=== PATIENT | female | born 1950 | race Caucasian/White ===

== ENCOUNTER 2018-11-09 11:18 | Inpatient (IN) ==
[2018-11-09] MEDS ORDERED: Ondansetron ODT 4 MG TAB.RAPDIS SL PRN (21:59)
[2018-11-09] MEDS ORDERED: Albuterol 2.5 MG/3 ML NEBULIZER IH PRN (22:01)
[2018-11-09 22:22] LABS: Bilirubin,Urine Negative (Negative); Blood,Urine Trace-lysed (Negative); Clarity,Urine Slightly Cloudy (Clear); Glucose,Urine (UA) Normal (Normal); Ketones,Urine Negative (Negative); Leukocyte Esterase,Urine Negative (Negative); Nitrite,Urine Negative (Negative); Protein,Urine Negative (Neg-Trace); Urobilinogen,Urine Normal (Normal)
[2018-11-09 22:23] LABS: Color,Urine Yellow (Yellow); RBC,Urine 0-3 per hpf (0-3); Squamous Epithelial Cell,Urine Few per lpf (None-Few)
[2018-11-10] MEDS: Acetaminophen 325 MG TABLET PO PRN ×3 (02:20→19:23)
[2018-11-10] MEDS: *HR* Enoxaparin 40 MG/0.4 ML SYRINGE SQ SCH (05:47)
[2018-11-10 05:58] LABS: Basophils # 0.1 K/mcL (0.0-0.2); Basophils % 0.4 %; Eosinophils # 0.1 K/mcL (0.0-0.6); Eosinophils % 0.7 %; Hematocrit 38.3 % (35.3-44.9); Immature Granulocytes % 0.3 % (0-4); Lymphocytes # 2.5 K/mcL (0.6-4.6); Lymphocytes % 21.7 %; Mean Corpuscular HGB Conc 33.7 g/dL (31.6-35.5); Mean Corpuscular Hemoglobin 27.2 pg (28.0-33.3); Mean Corpuscular Volume 80.8 fL (83.0-100.0); Mean Platelet Volume 9.2 fL (9.4-12.4); Monocytes % 8.3 %; Neutrophils # 7.8 K/mcL (1.6-8.9); Platelet Count 292 K/mcL (140-400); Red Blood Count 4.74 M/mcL (3.82-4.97); Red Cell Distribution Width 13.3 % (11.5-14.5); Segmented Neutrophils % 68.6 %; White Blood Count 11.4 K/mcL (4.3-11.1)
[2018-11-10 06:03] LABS: Hemoglobin 12.9 g/dL (11.5-15.4)
[2018-11-10 06:15] LABS: Alanine Aminotransferase 22 Units/L (7-52); Albumin 3.6 g/dL (3.5-5.7); Albumin/Globulin Ratio 1.5 (1.1-2.2); Alkaline Phosphatase 86 Units/L (34-104); Aspartate Amino Transferase 19 Units/L (13-39); BUN/Creatinine Ratio 17 (6-26); Bilirubin,Total 0.4 mg/dL (0.3-1.0); Blood Urea Nitrogen 10 mg/dL (8-23); Calcium 8.7 mg/dL (8.6-10.3); Carbon Dioxide 24 mEq/L (23-29); Chloride 107 mEq/L (98-107); Globulin 2.4 g/dL (2.4-3.5); Glucose 123 mg/dL (70-105); Magnesium 1.7 mg/dL (1.6-2.6); Osmolality,Calculated 284 (280-300); Potassium 3.1 mEq/L (3.5-5.1); Sodium 137 mEq/L (136-145); eGFR For African Americans > 60 (> 60); eGFR For Non-African Americans > 60 (> 60)
[2018-11-10] MEDS: Sennosides 8.6 MG TABLET PO SCH (08:50)
[2018-11-10] MEDS ORDERED: Aspirin Enteric Coated 81 MG Tablet PO SCH (09:00)
[2018-11-10] MEDS ORDERED: cloNIDine HCl 0.1 MG TABLET PO PRN (09:04)
--- NOTE | 2018-11-10 10:35 | Internal Med History&Physical ---
Date of Encounter: 11/10/18 Time of Encounter: 10:35 Assessment and Plan (1) Hypokalemia Current visit: Yes Status: Acute Supplemental potassium. Potassium level was 3.1 today. Will continue to monitor labs. (2) COPD (chronic obstructive pulmonary disease) Current visit: Yes Status: Acute Stable. Monitor. Continue current medication Qualifiers: COPD type: unspecified COPD Qualified Code(s): J44.9 - Chronic obstructive pulmonary disease, unspecified (3) CVA (cerebral vascular accident) Current visit: Yes Status: Acute Patient with left facial droop, left hemiplegia, left visual field cut. Dysphagia. PT, OT and ST to eval and treat. no new neurological deficits. follow up with neuro as scheduled. Qualifiers: CVA mechanism: embolism Precerebral and cerebral artery: middle cerebral artery Laterality of affected vessel: right Qualified Code(s): I63.411 - Cerebral infarction due to embolism of right middle cerebral artery Internal Medicine - H&P: HPI Admitted From: Hospital to Hospital Transfer Plans for Post Hospital Care: Home History of present illness: Ms. Contreras is a 68 year old female admitted to inpatient rehab unit from [facility] status post right MCA stroke. She was admitted on . She had a fall on . Then the family found her the next morning with weakness on left side. Patient has significant left-sided neglect with dysarthria, left facial droop, left-sided visual field cut and dysphagia. had MBS- on honey thick and mechanically altered diet. states she lives at home with granddaughter. denies fever, chills, NVD, SOB or chest pain. states bowels moved this am. current smoker 2 pack per day. PT, OT and ST to eval and treat. Past Med Surg Social Fam HX - Past Medical History Medical history: asthma, COPD, hypertension Additional medical history: Right MCA Psychiatric history: no psych history - Past Surgical History Additional surgical history: Tubal ligation - Social History Smoking Status: Former smoker Smokeless Tobacco Status: No Alcohol use: occasionally Drug use: none - Family History Mother History Unknown: Yes Father History Unknown: Yes Internal Medicine - H&P: Meds Aspirin [Lo-Dose Aspirin EC] 81 mg PO DAILY 11/09/18 [History] Atorvastatin [Lipitor] 80 mg PO HS 11/09/18 [History] Docusate [Colace] 100 mg PO BID 11/09/18 [History] Lisinopril [Zestril] 10 mg PO DAILY 11/09/18 [History] Sennosides [Senokot] 8.6 mg PO DAILY 11/09/18 [History] Allergy/AdvReac Type Severity Reaction Status Date / Time No Known Allergies Allergy Verified 11/09/18 23:56 All Systems PM: A 10-system review of systems was performed and is negative for pertinent findings except as documented above in the HPI. - Constitutional Constitutional: no chills, no fever(s), no night sweats - EENT Eyes: as per HPI, no change in vision, no discharge, no pain, no photophobia Ears: no ear discharge, no ear pain, no tinnitus Nose, mouth and throat: no dysphagia, no nasal discharge, no neck pain, no sore throat - Cardiovascular Cardiovascular ROS IM: no chest pain, no diaphoresis, no dyspnea, no lightheadedness, no palpitations, no syncope - Respiratory Respiratory: no cough, no dyspnea, no wheezing, no excessive phlegm production - Gastrointestinal Gastrointestinal: no abdominal pain, no diarrhea, no hematemesis, no hematochezia, no melena, no nausea, no vomiting - Genitourinary Genitourinary: no change in urinary stream, no dysuria, no flank pain, no hematuria - Musculoskeletal Musculoskeletal ROS IM: no numbness, no tingling - Integumentary Integumentary IM: no rash, no unusual bruising - Neurological Neurological ROS: as per HPI, no confusion, no convulsions, no focal weakness, no numbness, no tingling, no tremor(s) - Hematologic/Lymphatic Hematologic/Lymphatic: no easy bruising - Constitutional Vitals: Temp Pulse Resp BP Pulse Ox 98.3 F 71 18 164/81 93 11/10/18 07:00 11/10/18 07:00 11/10/18 07:00 11/10/18 07:00 11/10/18 07:00 General appearance: Present: cooperative, A&O X 3, pleasant, no acute distress, answers questions appropriately Exam: Left facial droop, left visual field cut - Head Head exam: Present: atraumatic, normocephalic - Eye Eye exam: Present: PERRL, conjuntiva pink, sclera anicteric Pupils: Present: PERRL - Neck Neck exam general surgery: Present: supple, trachea midline. Absent: lymphadenopathy - Respiratory Respiratory exam: Present: CTAB. Absent: accessory muscle use, rales, rhonchi, wheezes - Cardiovascular Cardiovascular exam: Present: RRR, +S1, +S2. Absent: diastolic murmur, gallop, rubs, systolic murmur - GI/Abdominal GI/Abdominal exam: Present: normal bowel sounds, soft, no peritoneal signs. Absent: distended, tenderness - Extremities Exam Extremities exam: Present: warm, radial pulses palpable and symmetrical. Absent: calf tenderness, cyanotic, pedal edema Additional comments: Left-sided hemiplegia - Neurological Exam Neurological exam: Present: alert, oriented X3, facial droop, speech deficit. Absent: pronater drift Additional comments: Left-sided hemiplegia - Skin Skin exam: Present: dry, intact Internal Med - H&P Results - Labs CBC & Chem 7: 11/10/18 05:50 11/10/18 05:50 Labs: Short CBC 11/10/18 Range/Units 05:50 WBC 11.4 H (4.3-11.1) K/mcL Hgb 12.9 D (11.5-15.4) g/dL Hct 38.3 (35.3-44.9) % Plt Count 292 (140-400) K/mcL Neutrophils # 7.8 (1.6-8.9) K/mcL BMP 11/10/18 05:50 Sodium 137 Potassium 3.1 L Chloride 107 Carbon Dioxide 24 BUN 10 Creatinine 0.58 L Glucose 123 H Calcium 8.7 Liver Function 11/10/18 Range/Units 05:50 Total Bilirubin 0.4 (0.3-1.0) mg/dL AST 19 (13-39) Units/L ALT 22 (7-52) Units/L Alkaline Phosphatase 86 (34-104) Units/L Albumin 3.6 (3.5-5.7) g/dL Urine 11/09/18 Range/Units 22:00 Urine Color Yellow (Yellow) Urine Clarity Slightly Cloudy A (Clear) Urine pH 6.0 (5.0-8.0) pH Units Ur Specific [place] 1.010 (1.010-1.025) Urine Protein Negative (Neg-Trace) mg/dL Urine Glucose (UA) Normal (Normal) mg/dL - Stroke Is the patient on any antithrombotics?: Yes Are there any contradictions to antithrombotics?: No
[2018-11-10] MEDS: Potassium Chloride Elixir 20 MEQ/15 ML UDC PO SCH ×2 (13:44→16:54)
[2018-11-10] MEDS: Docusate Oral Soln 100 MG/10 ML UDC PO SCH (20:30)
[2018-11-11] MEDS: Acetaminophen 325 MG TABLET PO PRN ×2 (00:24→19:48)
[2018-11-11] MEDS: *HR* Enoxaparin 40 MG/0.4 ML SYRINGE SQ SCH (05:01)
[2018-11-11] MEDS: Docusate Oral Soln 100 MG/10 ML UDC PO SCH ×2 (09:16→19:48)
[2018-11-11] MEDS: Potassium Chloride Elixir 20 MEQ/15 ML UDC PO SCH ×3 (09:16→16:36)
[2018-11-11] MEDS: Aspirin 81 MG TAB.CHEW PO SCH (09:16)
[2018-11-11] MEDS: Sennosides 8.6 MG TABLET PO SCH (09:16)
--- NOTE | 2018-11-11 11:56 | Internal Med Progress Note ---
Date of Encounter: 11/11/18 Time of Encounter: 11:54 - Assessment and plan (1) CVA (cerebral vascular accident) Current Visit: Yes Status: Acute Assessment and plan: No acute issues. Patient continues with left hemiplegia effect. Continues with left facial droop and slight expressive aphasia. Patient complaining of muscle spasms a left leg currently is that the pain is tolerable. Left arm remains contracted. Patient participated in physical therapy progressing well. We will continue with current plan of care. Qualifiers: CVA mechanism: embolism Precerebral and cerebral artery: middle cerebral artery Laterality of affected vessel: right Qualified Code(s): I63.411 - Cerebral infarction due to embolism of right middle cerebral artery (2) COPD (chronic obstructive pulmonary disease) Current Visit: Yes Status: Acute Assessment and plan: No acute issues. Lungs are clear throughout. We will continue with current bronchodilators and medications per plans. Qualifiers: COPD type: unspecified COPD Qualified Code(s): J44.9 - Chronic obstructive pulmonary disease, unspecified - Time Spent With Patient less than 15 minutes - Subjective Interval history: Patient appears relaxed but complaints of recent muscle spasms to her left leg. Patient states that her muscle spasms increase during mobilization. Eyes any other issues. - Constitutional Vitals: Temp Pulse Resp BP Pulse Ox 97.7 F 78 15 160/82 93 11/11/18 07:00 11/11/18 07:00 11/11/18 07:00 11/11/18 07:00 11/11/18 07:00 General appearance: Present: cooperative, A&O X 3, pleasant, no acute distress, answers questions appropriately - Head Head exam: Present: atraumatic, normocephalic - Eye Eye exam: Present: PERRL, conjuntiva pink, sclera anicteric Pupils: Present: PERRL Additional comments: Patient noted to have visual cut to left field. - Neck Neck exam general surgery: Present: supple, trachea midline. Absent: lymphadenopathy - Respiratory Respiratory exam: Present: CTAB. Absent: accessory muscle use, rales, rhonchi, wheezes - Cardiovascular Cardiovascular exam: Present: RRR, +S1, +S2. Absent: diastolic murmur, gallop, rubs, systolic murmur - GI/Abdominal GI/Abdominal exam: Present: normal bowel sounds, soft, no peritoneal signs. Absent: distended, tenderness - Extremities Exam Extremities exam: Present: warm, radial pulses palpable and symmetrical. Absent: calf tenderness, cyanotic, pedal edema - Neurological Exam Neurological exam: Present: CN II-XII intact, oriented X3, no focal deficits. Absent: pronater drift, facial droop, speech deficit Additional comments: Patient with left hemiplegia, with left arm showing fracture. Left leg with muscle spasms. Right extremities at 5/5. Patient shows left facial droop and left visual cut. - Skin Skin exam: Present: dry, intact Internal Medicine: Result - Labs CBC & Chem 7: 11/10/18 05:50 11/10/18 05:50 - Stroke Is the patient on any antithrombotics?: Yes Are there any contradictions to antithrombotics?: No Consult Discharge Plan - Plan Referrals: Caesar Marquez MD [Primary Care Provider] -
[2018-11-11 14:25] LABS: BUN/Creatinine Ratio 27 (6-26); Blood Urea Nitrogen 17 mg/dL (8-23); Calcium 9.4 mg/dL (8.6-10.3); Carbon Dioxide 25 mEq/L (23-29); Chloride 105 mEq/L (98-107); Glucose 115 mg/dL (70-105); Osmolality,Calculated 284 (280-300); Potassium 4.2 mEq/L (3.5-5.1); Sodium 136 mEq/L (136-145); eGFR For African Americans > 60 (> 60); eGFR For Non-African Americans > 60 (> 60)
[2018-11-11] MEDS: tiZANidine 4 MG TABLET PO PRN (19:48)
[2018-11-12] MEDS: tiZANidine 4 MG TABLET PO PRN (02:45)
[2018-11-12] MEDS: *HR* Enoxaparin 40 MG/0.4 ML SYRINGE SQ SCH (06:28)
[2018-11-12] MEDS: Sennosides 8.6 MG TABLET PO SCH (08:46)
[2018-11-12] MEDS: Docusate Oral Soln 100 MG/10 ML UDC PO SCH ×2 (08:46→20:01)
[2018-11-12] MEDS: Potassium Chloride Elixir 20 MEQ/15 ML UDC PO SCH ×3 (08:46→17:34)
[2018-11-12] MEDS: Aspirin 81 MG TAB.CHEW PO SCH (08:46)
[2018-11-12 09:28] LABS: Basophils # 0.1 K/mcL (0.0-0.2); Basophils % 0.4 %; Eosinophils # 0.1 K/mcL (0.0-0.6); Eosinophils % 0.6 %; Hemoglobin 13.8 g/dL (11.5-15.4); Immature Granulocytes % 0.4 % (0-4); Lymphocytes # 2.7 K/mcL (0.6-4.6); Lymphocytes % 17.2 %; Mean Corpuscular HGB Conc 32.1 g/dL (31.6-35.5); Mean Corpuscular Hemoglobin 26.7 pg (28.0-33.3); Mean Corpuscular Volume 83.3 fL (83.0-100.0); Mean Platelet Volume 9.4 fL (9.4-12.4); Monocytes % 6.7 %; Neutrophils # 11.6 K/mcL (1.6-8.9); Platelet Count 342 K/mcL (140-400); Red Blood Count 5.16 M/mcL (3.82-4.97); Red Cell Distribution Width 13.6 % (11.5-14.5); Segmented Neutrophils % 74.7 %; White Blood Count 15.5 K/mcL (4.3-11.1)
--- NOTE | 2018-11-12 09:46 | Internal Med Progress Note ---
Date of Encounter: 11/12/18 Time of Encounter: 09:44 - Assessment and plan (1) CVA (cerebral vascular accident) Current Visit: Yes Status: Acute Assessment and plan: No acute issues. Patient continues with left hemiplegia effect. Continues with left facial droop and slight expressive aphasia. Patient continues with complaints of muscle spasms a left leg currently is that the pain is tolerable. Patient currently on when necessary Zanaflex. We will change Zanaflex to routine. Left arm remains contracted. Patient participated in physical therapy progressing well. We will continue with current plan of care. Qualifiers: CVA mechanism: embolism Precerebral and cerebral artery: middle cerebral artery Laterality of affected vessel: right Qualified Code(s): I63.411 - Cerebral infarction due to embolism of right middle cerebral artery (2) COPD (chronic obstructive pulmonary disease) Current Visit: Yes Status: Acute Assessment and plan: No acute issues. Lungs are clear throughout. We will continue with current bronchodilators and medications per plans. Qualifiers: COPD type: unspecified COPD Qualified Code(s): J44.9 - Chronic obstructive pulmonary disease, unspecified - Time Spent With Patient less than 15 minutes - Subjective Interval history: Patient appears relaxed but continues with complaints of recent muscle spasms to her left leg. Patient started on when necessary Zanaflex yesterday, but states she is not sure there is been any effect from that. Patient states that her muscle spasms increase during mobilization. Denies any other issues. - Constitutional Vitals: Temp Pulse Resp BP Pulse Ox 98.3 F 62 14 165/80 94 11/12/18 06:43 11/12/18 06:43 11/12/18 06:43 11/12/18 06:43 11/12/18 06:43 General appearance: Present: cooperative, A&O X 3, pleasant, no acute distress, answers questions appropriately - Head Head exam: Present: atraumatic, normocephalic - Eye Eye exam: Present: PERRL, conjuntiva pink, sclera anicteric Pupils: Present: PERRL - Neck Neck exam general surgery: Present: supple, trachea midline. Absent: lymphad enopathy - Respiratory Respiratory exam: Present: decreased breath sounds, CTAB. Absent: accessory muscle use, rales, rhonchi, wheezes - Cardiovascular Cardiovascular exam: Present: RRR, +S1, +S2. Absent: diastolic murmur, gallop, rubs, systolic murmur - GI/Abdominal GI/Abdominal exam: Present: normal bowel sounds, soft, no peritoneal signs. Absent: distended, tenderness - Extremities Exam Extremities exam: Present: warm, radial pulses palpable and symmetrical. Absent: calf tenderness, cyanotic, pedal edema - Neurological Exam Neurological exam: Present: CN II-XII intact, oriented X3, facial droop. Absent: pronater drift, speech deficit Additional comments: Patient continues with left hemiparesis. Left arm noted to be contracted and difficult to extend. Left lower extremity is 3/5 muscle strength. Right extremities 5/5. Continues with left facial droop. - Skin Skin exam: Present: dry, intact Internal Medicine: Result - Labs CBC & Chem 7: 11/12/18 08:55 11/11/18 12:07 Labs: Short CBC 11/12/18 Range/Units 08:55 WBC 15.5 H (4.3-11.1) K/mcL Hgb 13.8 (11.5-15.4) g/dL Hct 43.0 (35.3-44.9) % Plt Count 342 (140-400) K/mcL Neutrophils # 11.6 H (1.6-8.9) K/mcL BMP 11/11/18 12:07 Sodium 136 Potassium 4.2 Chloride 105 Carbon Dioxide 25 BUN 17 Creatinine 0.62 Glucose 115 H Calcium 9.4 - Stroke Is the patient on any antithrombotics?: Yes Are there any contradictions to antithrombotics?: No Consult Discharge Plan - Plan Referrals: Caesar Marquez MD [Primary Care Provider] -
[2018-11-12] MEDS: tiZANidine 4 MG TABLET PO SCH ×3 (13:23→20:00)
[2018-11-12] MEDS: Acetaminophen 325 MG TABLET PO PRN (20:00)
[2018-11-13] MEDS: *HR* Enoxaparin 40 MG/0.4 ML SYRINGE SQ SCH (06:28)
[2018-11-13] MEDS: tiZANidine 4 MG TABLET PO SCH ×4 (08:21→20:47)
[2018-11-13] MEDS: Sennosides 8.6 MG TABLET PO SCH (08:21)
[2018-11-13] MEDS: Aspirin 81 MG TAB.CHEW PO SCH (08:21)
[2018-11-13] MEDS: Docusate Oral Soln 100 MG/10 ML UDC PO SCH ×3 (08:21→20:57)
--- NOTE | 2018-11-13 10:21 | Internal Med Progress Note ---
Date of Encounter: 11/13/18 Time of Encounter: : - Assessment and plan (1) Bronchitis Current Visit: Yes Status: Acute Assessment and plan: pt WBC high , afebrile so far has some cough no apparent Respiratory distress . SHe has hx of COPD , start Levofloxcin and followup sputum culture and sensitivity . Chest Xray for pneumonia (2) Acute ischemic stroke Current Visit: No Status: Acute Assessment and plan: R Hemisphere stroke left side effected getting rehab stable so far (3) HTN (hypertension) Current Visit: No Status: Chronic Assessment and plan: on meds stable Qualifiers: Hypertension type: essential hypertension Qualified Code(s): I10 - Essential (primary) hypertension - Subjective Interval history: Cross coverage , having some cough afebrile so far , in rehab getting her PT ignores her left side completely no acute respiratory distress noted , asnwers questions appropriately - Constitutional Vitals: Temp Pulse Resp BP Pulse Ox 97.5 F L 75 17 144/74 93 11/12/18 18:53 11/12/18 18:53 11/12/18 18:53 11/12/18 18:53 11/12/18 18:53 General appearance: Present: cooperative, A&O X 3, pleasant, no acute distress, answers questions appropriately - Head Head exam: Present: atraumatic - Eye Eye exam: Present: EOMI, PERRL. Absent: scleral icterus Pupils: Present: PERRL - Neck Neck exam general surgery: Present: supple. Absent: tenderness, nuchal rigidity - Respiratory Respiratory exam: Present: rales. Absent: decreased breath sounds, rhonchi, stridor, wheezes Additional comments: mild crackles noted on the bases has some cough - Cardiovascular Cardiovascular exam: Present: RRR, +S1, +S2. Absent: JVD - GI/Abdominal GI/Abdominal exam: Present: normal bowel sounds, soft. Absent: distended, firm, rebound, rigid - Extremities Exam Extremities exam: Absent: pedal edema, tenderness, warm - Neurological Exam Neurological exam: Present: oriented X3, facial droop, speech deficit Additional comments: weakness on the left side , ignoring left side , deviation face towards left no difficulty in swallowing noted weakened in left upper and lower limb tongue deviation towards left side Internal Medicine: Result - Labs CBC & Chem 7: 11/12/18 08:55 11/11/18 12:07 - Stroke Is the patient on any antithrombotics?: Yes Contraindication Antithromb by Day Two: Drug Allergy to All Antithromobic Med ications Consult Discharge Plan - Plan Referrals: Caesar Marquez MD [Primary Care Provider] -
[2018-11-13] MEDS: levoFLOXacin 500 MG TABLET PO SCH (12:40)
[2018-11-13] MEDS: Acetaminophen 325 MG TABLET PO PRN (20:46)
[2018-11-13] MEDS: Melatonin 3 MG TABLET PO PRN (20:46)
[2018-11-14] MEDS: *HR* Enoxaparin 40 MG/0.4 ML SYRINGE SQ SCH (05:31)
[2018-11-14] MEDS: Docusate Oral Soln 100 MG/10 ML UDC PO SCH ×2 (09:56→20:55)
[2018-11-14] MEDS: levoFLOXacin 500 MG TABLET PO SCH (10:17)
[2018-11-14] MEDS: Aspirin 81 MG TAB.CHEW PO SCH (10:17)
[2018-11-14] MEDS: Sennosides 8.6 MG TABLET PO SCH (10:17)
[2018-11-14] MEDS: tiZANidine 4 MG TABLET PO SCH ×4 (10:18→20:54)
--- NOTE | 2018-11-14 10:24 | Internal Med Progress Note ---
Date of Encounter: 11/14/18 Time of Encounter: 10:22 - Assessment and plan (1) Bronchitis Current Visit: Yes Status: Acute Assessment and plan: CXR negative conitnue antibiotics orally for days seems to be better (2) Acute ischemic stroke Current Visit: No Status: Acute Assessment and plan: R Hemisphere stroke left side effected getting rehab stable so far doing better needs support for feeding (3) HTN (hypertension) Current Visit: No Status: Chronic Assessment and plan: slightly high will follow and adjust if needed - Subjective Interval history: Cross coverage , seems to be doing much better today cough has abated and she feels that she has n breathing issues. Her speech is still garbled. No other issues at the present time - Constitutional Vitals: Temp Pulse Resp BP Pulse Ox 98.2 F 75 17 152/82 93 11/14/18 07:40 11/14/18 07:40 11/14/18 07:40 11/14/18 07:40 11/14/18 07:40 General appearance: Present: cooperative, A&O X 3, pleasant, no acute distress, answers questions appropriately - Head Head exam: Present: atraumatic - Eye Eye exam: Present: EOMI, PERRL. Absent: scleral icterus Pupils: Present: PERRL - Neck Neck exam general surgery: Present: full ROM, supple. Absent: tenderness, nuchal rigidity - Respiratory Respiratory exam: Present: decreased breath sounds, CTAB. Absent: chest wall te nderness, respiratory distress, rhonchi, stridor, wheezes, tachypnea Additional comments: no basal crackles today lung sounds much cleared today - Cardiovascular Cardiovascular exam: Present: RRR, +S1, +S2. Absent: irregular rhythm, JVD - GI/Abdominal GI/Abdominal exam: Present: normal bowel sounds, soft. Absent: distended, guarding, rigid - Extremities Exam Extremities exam: Absent: pedal edema, tenderness - Neurological Exam Neurological exam: Present: alert, oriented X3, facial droop, speech deficit Additional comments: left neglect , deviation of face and 7 th nerve involvement paralysis on the left side both upper and lower limb Internal Medicine: Result - Labs CBC & Chem 7: 11/12/18 08:55 11/11/18 12:07 - Impressions Impressions Chest X-Ray 11/13/18 10:28 IMPRESSION: No evidence of acute cardiopulmonary disease. D/ / Tian Manzanares MD / Tian Manzanares MD Interpreting Provider: Tian Manzanares MD - Stroke Is the patient on any antithrombotics?: Yes Are there any contradictions to antithrombotics?: No Contraindication Antithromb by Day Two: Drug Allergy to All Antithromobic Medications Symptom Onset Unknown: No (none) Has Patient Been Evaluated by Rehab for Stroke: Yes Consult Discharge Plan - Plan Referrals: Caesar Marquez MD [Primary Care Provider] -
[2018-11-14] MEDS: Acetaminophen 325 MG TABLET PO PRN (23:05)
[2018-11-15 06:15] LABS: Basophils # 0.1 K/mcL (0.0-0.2); Basophils % 0.5 %; Eosinophils # 0.1 K/mcL (0.0-0.6); Eosinophils % 0.7 %; Hematocrit 41.9 % (35.3-44.9); Hemoglobin 13.5 g/dL (11.5-15.4); Immature Granulocytes % 0.5 % (0-4); Lymphocytes % 25.9 %; Mean Corpuscular HGB Conc 32.2 g/dL (31.6-35.5); Mean Corpuscular Hemoglobin 26.7 pg (28.0-33.3); Mean Platelet Volume 9.4 fL (9.4-12.4); Neutrophils # 7.3 K/mcL (1.6-8.9); Platelet Count 363 K/mcL (140-400); Red Blood Count 5.05 M/mcL (3.82-4.97); Red Cell Distribution Width 13.4 % (11.5-14.5); Segmented Neutrophils % 63.4 %; White Blood Count 11.5 K/mcL (4.3-11.1)
[2018-11-15] MEDS: *HR* Enoxaparin 40 MG/0.4 ML SYRINGE SQ SCH (06:19)
[2018-11-15 06:28] LABS: Alanine Aminotransferase 35 Units/L (7-52); Albumin 3.7 g/dL (3.5-5.7); Albumin/Globulin Ratio 1.3 (1.1-2.2); Alkaline Phosphatase 102 Units/L (34-104); Aspartate Amino Transferase 16 Units/L (13-39); BUN/Creatinine Ratio 29 (6-26); Bilirubin,Total 0.3 mg/dL (0.3-1.0); Blood Urea Nitrogen 22 mg/dL (8-23); Calcium 9.5 mg/dL (8.6-10.3); Carbon Dioxide 27 mEq/L (23-29); Chloride 103 mEq/L (98-107); Globulin 2.9 g/dL (2.4-3.5); Glucose 110 mg/dL (70-105); Magnesium 1.9 mg/dL (1.6-2.6); Osmolality,Calculated 286 (280-300); Sodium 136 mEq/L (136-145); Total Protein 6.6 g/dL (6.4-8.9); eGFR For African Americans > 60 (> 60); eGFR For Non-African Americans > 60 (> 60)
[2018-11-15] MEDS: tiZANidine 4 MG TABLET PO SCH ×4 (08:36→20:31)
[2018-11-15] MEDS: Sennosides 8.6 MG TABLET PO SCH (08:37)
[2018-11-15] MEDS: Aspirin 81 MG TAB.CHEW PO SCH (08:37)
[2018-11-15] MEDS: levoFLOXacin 500 MG TABLET PO SCH (08:37)
[2018-11-15] MEDS: Docusate Oral Soln 100 MG/10 ML UDC PO SCH ×2 (08:38→20:38)
--- NOTE | 2018-11-15 11:55 | Internal Med Progress Note ---
Date of Encounter: 11/15/18 Time of Encounter: 11:53 - Assessment and plan (1) CVA (cerebral vascular accident) Current Visit: Yes Status: Acute Assessment and plan: Continue PT, OT and ST. Will follow progress. No new neurological deficits at this time. Follow up with neuro as scheduled. Qualifiers: CVA mechanism: embolism Precerebral and cerebral artery: middle cerebral artery Laterality of affected vessel: right Qualified Code(s): I63.411 - Cerebral infarction due to embolism of right middle cerebral artery (2) Bronchitis Current Visit: Yes Status: Acute Assessment and plan: Continue Levaquin. Monitor. Continues to have bronchospastic cough. White blood cell count 11.5 today. Afebrile. (3) HTN (hypertension) Current Visit: Yes Status: Chronic Assessment and plan: Controlled with current medication. Monitor blood pressure. Qualifiers: Hypertension type: essential hypertension Qualified Code(s): I10 - Essential (primary) hypertension - Time Spent With Patient less than 15 minutes - Subjective Interval history: Patient participating well with therapy. Patient is dysarthria with left facial droop left visual cut and left hemiparesis. Started on Levaquin for bronchitis. Continues to have bronchus spastic cough. White blood cell count 11.5 today. Patient afebrile. - Constitutional Vitals: Temp Pulse Resp BP Pulse Ox 97.8 F 71 15 138/79 95 11/15/18 07:56 11/15/18 07:56 11/15/18 07:56 11/15/18 07:56 11/15/18 07:56 General appearance: Present: cooperative, A&O X 3, pleasant, no acute distress, answers questions appropriately Exam: Left facial droop and left visual cut - Head Head exam: Present: atraumatic, normocephalic - Eye Eye exam: Present: PERRL, conjuntiva pink, sclera anicteric Pupils: Present: PERRL - Neck Neck exam general surgery: Present: supple, trachea midline. Absent: lymphadenopathy - Respiratory Respiratory exam: Present: CTAB. Absent: accessory muscle use, rales, rhonchi, wheezes - Cardiovascular Cardiovascular exam: Present: RRR, +S1, +S2. Absent: diastolic murmur, gallop, rubs, systolic murmur - GI/Abdominal GI/Abdominal exam: Present: normal bowel sounds, soft, no peritoneal signs. Absent: distended, tenderness - Extremities Exam Extremities exam: Present: warm, radial pulses palpable and symmetrical. Absent: calf tenderness, cyanotic, pedal edema Additional comments: Left-sided hemiparesis - Neurological Exam Neurological exam: Present: CN II-XII intact, oriented X3, no focal deficits. Absent: pronater drift, facial droop, speech deficit - Skin Skin exam: Present: dry, intact Internal Medicine: Result - Labs CBC & Chem 7: 11/15/18 05:30 11/15/18 05:30 Labs: Short CBC 11/15/18 Range/Units 05:30 WBC 11.5 H (4.3-11.1) K/mcL Hgb 13.5 (11.5-15.4) g/dL Hct 41.9 (35.3-44.9) % Plt Count 363 (140-400) K/mcL Neutrophils # 7.3 (1.6-8.9) K/mcL BMP 11/15/18 05:30 Sodium 136 Potassium 4.0 Chloride 103 Carbon Dioxide 27 BUN 22 Creatinine 0.77 Glucose 110 H Calcium 9.5 Liver Function 11/15/18 Range/Units 05:30 Total Bilirubin 0.3 (0.3-1.0) mg/dL AST 16 (13-39) Units/L ALT 35 (7-52) Units/L Alkaline Phosphatase 102 (34-104) Units/L Albumin 3.7 (3.5-5.7) g/dL - Stroke Is the patient on any antithrombotics?: Yes Are there any contradictions to antithrombotics?: No Contraindication Antithromb by Day Two: Drug Allergy to All Antithromobic Medications Consult Discharge Plan - Plan Referrals: Caesar Marquez MD [Primary Care Provider] -
[2018-11-16] MEDS: *HR* Enoxaparin 40 MG/0.4 ML SYRINGE SQ SCH (06:22)
[2018-11-16 07:10] LABS: Alanine Aminotransferase 27 Units/L (7-52); Albumin 3.6 g/dL (3.5-5.7); Albumin/Globulin Ratio 1.3 (1.1-2.2); Alkaline Phosphatase 94 Units/L (34-104); Aspartate Amino Transferase 16 Units/L (13-39); BUN/Creatinine Ratio 34 (6-26); Bilirubin,Total 0.3 mg/dL (0.3-1.0); Blood Urea Nitrogen 24 mg/dL (8-23); Calcium 9.3 mg/dL (8.6-10.3); Carbon Dioxide 27 mEq/L (23-29); Chloride 102 mEq/L (98-107); Globulin 2.8 g/dL (2.4-3.5); Glucose 109 mg/dL (70-105); Osmolality,Calculated 283 (280-300); Potassium 4.2 mEq/L (3.5-5.1); Sodium 134 mEq/L (136-145); Total Protein 6.4 g/dL (6.4-8.9); eGFR For African Americans > 60 (> 60); eGFR For Non-African Americans > 60 (> 60)
[2018-11-16] MEDS: Docusate Oral Soln 100 MG/10 ML UDC PO SCH ×2 (09:21→19:41)
[2018-11-16] MEDS: Sennosides 8.6 MG TABLET PO SCH (09:22)
[2018-11-16] MEDS: levoFLOXacin 500 MG TABLET PO SCH (09:22)
[2018-11-16] MEDS: Aspirin 81 MG TAB.CHEW PO SCH (09:22)
[2018-11-16] MEDS: tiZANidine 4 MG TABLET PO SCH ×4 (09:22→19:41)
--- NOTE | 2018-11-16 13:50 | Internal Med Progress Note ---
Date of Encounter: 11/16/18 Time of Encounter: 13:48 - Assessment and plan (1) CVA (cerebral vascular accident) Current Visit: Yes Status: Acute Assessment and plan: Continue PT, OT and ST. Will follow progress. No new neurological deficits at this time. Follow up with neuro as scheduled. Qualifiers: CVA mechanism: embolism Precerebral and cerebral artery: middle cerebral artery Laterality of affected vessel: right Qualified Code(s): I63.411 - Cerebral infarction due to embolism of right middle cerebral artery (2) Bronchitis Current Visit: Yes Status: Acute Assessment and plan: Continue Levaquin. Monitor. Continues to have bronchospastic cough. Afebrile. (3) HTN (hypertension) Current Visit: Yes Status: Chronic Assessment and plan: Controlled with current medication. Monitor blood pressure. Qualifiers: Hypertension type: essential hypertension Qualified Code(s): I10 - Essential (primary) hypertension - Time Spent With Patient less than 15 minutes - Subjective Interval history: Patient participating well with therapy. Patient is dysarthria with left facial droop left visual cut and left hemiparesis. Started on Levaquin for bronchitis. Patient afebrile. - Constitutional Vitals: Temp Pulse Resp BP Pulse Ox 98.0 F 87 16 125/77 94 11/15/18 19:00 11/15/18 19:00 11/15/18 19:00 11/15/18 19:00 11/15/18 19:00 General appearance: Present: cooperative, A&O X 3, pleasant, no acute distress, answers questions appropriately Exam: Left facial droop, slurred speech and left visual cut - Head Head exam: Present: atraumatic, normocephalic - Eye Eye exam: Present: PERRL, conjuntiva pink, sclera anicteric Pupils: Present: PERRL - Neck Neck exam general surgery: Present: supple, trachea midline. Absent: lymphadenopathy - Respiratory Respiratory exam: Present: CTAB. Absent: accessory muscle use, rales, rhonchi, wheezes - Cardiovascular Cardiovascular exam: Present: RRR, +S1, +S2. Absent: diastolic murmur, gallop, rubs, systolic murmur - GI/Abdominal GI/Abdominal exam: Present: normal bowel sounds, soft, no peritoneal signs. Absent: distended, tenderness - Extremities Exam Extremities exam: Present: warm, radial pulses palpable and symmetrical. Abse nt: calf tenderness, cyanotic, pedal edema Additional comments: Left hemiparesis - Neurological Exam Neurological exam: Present: CN II-XII intact, oriented X3, no focal deficits. Absent: pronater drift, facial droop, speech deficit - Skin Skin exam: Present: dry, intact Internal Medicine: Result - Labs CBC & Chem 7: 11/15/18 05:30 11/16/18 05:55 Labs: BMP 11/16/18 05:55 Sodium 134 L Potassium 4.2 Chloride 102 Carbon Dioxide 27 BUN 24 H Creatinine 0.70 Glucose 109 H Calcium 9.3 Liver Function 11/16/18 Range/Units 05:55 Total Bilirubin 0.3 (0.3-1.0) mg/dL AST 16 (13-39) Units/L ALT 27 (7-52) Units/L Alkaline Phosphatase 94 (34-104) Units/L Albumin 3.6 (3.5-5.7) g/dL - Stroke Is the patient on any antithrombotics?: Yes Are there any contradictions to antithrombotics?: No Contraindication Antithromb by Day Two: Drug Allergy to All Antithromobic Medications Consult Discharge Plan - Plan Referrals: Caesar Marquez MD [Primary Care Provider] -
[2018-11-16] MEDS: Melatonin 3 MG TABLET PO PRN (23:53)
[2018-11-16] MEDS: Acetaminophen 325 MG TABLET PO PRN (23:53)
[2018-11-17] MEDS: *HR* Enoxaparin 40 MG/0.4 ML SYRINGE SQ SCH (05:55)
[2018-11-17 06:58] LABS: Alanine Aminotransferase 22 Units/L (7-52); Albumin 3.5 g/dL (3.5-5.7); Albumin/Globulin Ratio 1.3 (1.1-2.2); Alkaline Phosphatase 88 Units/L (34-104); Aspartate Amino Transferase 14 Units/L (13-39); BUN/Creatinine Ratio 42 (6-26); Bilirubin,Total 0.3 mg/dL (0.3-1.0); Blood Urea Nitrogen 28 mg/dL (8-23); Calcium 9.3 mg/dL (8.6-10.3); Carbon Dioxide 26 mEq/L (23-29); Chloride 101 mEq/L (98-107); Globulin 2.7 g/dL (2.4-3.5); Glucose 111 mg/dL (70-105); Osmolality,Calculated 286 (280-300); Potassium 3.9 mEq/L (3.5-5.1); Sodium 135 mEq/L (136-145); Total Protein 6.2 g/dL (6.4-8.9); eGFR For African Americans > 60 (> 60); eGFR For Non-African Americans > 60 (> 60)
[2018-11-17] MEDS: levoFLOXacin 500 MG TABLET PO SCH (08:55)
[2018-11-17] MEDS: Aspirin 81 MG TAB.CHEW PO SCH (08:55)
[2018-11-17] MEDS: Sennosides 8.6 MG TABLET PO SCH (08:55)
[2018-11-17] MEDS: tiZANidine 4 MG TABLET PO SCH ×4 (08:55→19:19)
[2018-11-17] MEDS: Docusate Oral Soln 100 MG/10 ML UDC PO SCH ×3 (08:55→19:19)
--- NOTE | 2018-11-17 11:54 | Internal Med Progress Note ---
Date of Encounter: 11/17/18 Time of Encounter: 11:52 - Assessment and plan (1) CVA (cerebral vascular accident) Current Visit: Yes Status: Acute Assessment and plan: Continue PT, OT and ST. Will follow progress. No new neurological deficits at this time. Follow up with neuro as scheduled. Qualifiers: CVA mechanism: embolism Precerebral and cerebral artery: middle cerebral artery Laterality of affected vessel: right Qualified Code(s): I63.411 - Cerebral infarction due to embolism of right middle cerebral artery (2) Bronchitis Current Visit: Yes Status: Acute Assessment and plan: Continue Levaquin. Monitor. Improving. No cough at time of exam today. Afebrile. (3) HTN (hypertension) Current Visit: Yes Status: Chronic Assessment and plan: Controlled with current medication. Monitor blood pressure. Qualifiers: Hypertension type: essential hypertension Qualified Code(s): I10 - Essential (primary) hypertension (4) Insomnia Current Visit: Yes Status: Acute Assessment and plan: Currently taking melatonin 3 mg at this time. States she is not sleeping well. Will increased to 6 mg at bedtime. Qualifiers: Insomnia type: unspecified Qualified Code(s): G47.00 - Insomnia, unspecified - Time Spent With Patient 25 - 35 minutes - Subjective Interval history: Patient participating well with therapy. Patient is dysarthria with left facial droop left visual cut and left hemiparesis. denies any pain, fever, chills, NVD. denies SOB or chest pain. pocketing food in left, requires cueing to clear. states not sleeping well. will increase melatonin to 6mg at bedtime. - Constitutional Vitals: Temp Pulse Resp BP Pulse Ox 98.8 F 79 16 136/71 94 11/16/18 19:38 11/16/18 19:38 11/16/18 19:38 11/16/18 19:38 11/16/18 19:38 General appearance: Present: cooperative, A&O X 3, pleasant, no acute distress, answers questions appropriately Exam: Left facial droop, slurred speech, left visual field cut - Head Head exam: Present: atraumatic, normocephalic - Eye Eye exam: Present: PERRL, conjuntiva pink, sclera anicteric Pupils: Present: PERRL - Neck Neck exam general surgery: Present: supple, trachea midline. Absent: lymphadenopathy - Respiratory Respiratory exam: Present: CTAB. Absent: accessory muscle use, rales, rhonchi, wheezes - Cardiovascular Cardiovascular exam: Present: RRR, +S1, +S2. Absent: diastolic murmur, gallop, rubs, systolic murmur - GI/Abdominal GI/Abdominal exam: Present: normal bowel sounds, soft, no peritoneal signs. Absent: distended, tenderness - Extremities Exam Extremities exam: Present: warm, radial pulses palpable and symmetrical. Absent: calf tenderness, cyanotic, pedal edema Additional comments: Left hemiparesis - Neurological Exam Neurological exam: Present: CN II-XII intact, oriented X3, no focal deficits. Absent: pronater drift, facial droop, speech deficit - Skin Skin exam: Present: dry, intact Internal Medicine: Result - Labs CBC & Chem 7: 11/15/18 05:30 11/17/18 06:15 Labs: BMP 11/17/18 06:15 Sodium 135 L Potassium 3.9 Chloride 101 Carbon Dioxide 26 BUN 28 H Creatinine 0.67 Glucose 111 H Calcium 9.3 Liver Function 11/17/18 Range/Units 06:15 Total Bilirubin 0.3 (0.3-1.0) mg/dL AST 14 (13-39) Units/L ALT 22 (7-52) Units/L Alkaline Phosphatase 88 (34-104) Units/L Albumin 3.5 (3.5-5.7) g/dL - Stroke Is the patient on any antithrombotics?: Yes Are there any contradictions to antithrombotics?: No Contraindication Antithromb by Day Two: Drug Allergy to All Antithromobic Me dications Consult Discharge Plan - Plan Referrals: Caesar Marquez MD [Primary Care Provider] -
[2018-11-17] MEDS: Acetaminophen 325 MG TABLET PO PRN ×2 (12:00→19:33)
[2018-11-17] MEDS: Nicotine 21 MG PATCH.TD24 TD SCH (12:01)
--- NOTE | 2018-11-17 15:16 | Psychological Evaluation ---
Date of Encounter: 11/17/18 Time of Encounter: 11:00 History of Present Illness History of present illness: Ms. Contreras is a 68 year old female admitted to inpatient rehab unit from [facility] status post right MCA stroke. She was admitted on . She had a fall on . Then the family found her the next morning with weakness on left side. Patient has significant left-sided neglect with dysarthria, left facial droop, left-sided visual field cut and dysphagia. had MBS- on honey thick and mechanically altered diet. Past Medical History - Psychiatric History Psychiatric history: Reports: prior suicide attempt Additional Psychiatric History: When pt in her 40"s she was hospitalized 15 days for suicide attempt. Significant hx of alcohol abuse with disorderly conduct arrests. She stated she has a temper. Daughter stated alcohol no longer an issue. Pt did not some Hx of AA meetings in past. Home Medications and Allergies Aspirin [Lo-Dose Aspirin EC] 81 mg PO DAILY 11/09/18 [History] Atorvastatin [Lipitor] 80 mg PO HS 11/09/18 [History] Docusate [Colace] 100 mg PO BID 11/09/18 [History] Lisinopril [Zestril] 10 mg PO DAILY 11/09/18 [History] Sennosides [Senokot] 8.6 mg PO DAILY 11/09/18 [History] Allergy/AdvReac Type Severity Reaction Status Date / Time No Known Allergies Allergy Verified 11/09/18 23:56 Social History - Social History Social History: in 1998 (second marriage). Never had drivers license. [place] [facility] [place] granddaughter. HAs 2 daughters involved in her life. 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 - Tobacco Use Smoking Status: Current every day smoker - Alcohol Use Alcohol Use: unknown - Drug Use Drug Use: none (Unsure of current alcohol use orior to hospitalization) Cognitive/Emotional Assessment - Cognitive Ability Orientation: Person, Place, Month, Year Ability to Follow Directions: Fair Speech Pattern: Garbled Thought Process: Perseveration Additional Findings: Pt had difficulty with word recall after 5 min 0/3; digits forward 4 and backward 3. Unable to spell word HORSE backward. Could not recall pres, or governor. Knew previous pres. Could not perfrom serial 3's or count change. Speech dysarthric. - Emotional Status Affect Description: Flat Additional Findings: Frustration expressed when confronted with difficult tasks. Unawareness noted. Daughter feels mother is in good spirits. 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 Concerned with past MH hx and current ability to adequately cope with significant limitations. Treatment Frequency: weekly Next Session Date: 11/24/18
[2018-11-17] MEDS: Melatonin 3 MG TABLET PO PRN (19:33)
[2018-11-18] MEDS: *HR* Enoxaparin 40 MG/0.4 ML SYRINGE SQ SCH (05:29)
--- NOTE | 2018-11-18 10:47 | Internal Med Progress Note ---
Date of Encounter: 11/18/18 Time of Encounter: 10:45 - Assessment and plan (1) CVA (cerebral vascular accident) Current Visit: Yes Status: Acute Assessment and plan: No acute issues. Patient continues with left hemiplegia effect with left upper extremity showing continue contracture. Continues with left facial droop and slight expressive aphasia. Patient continues with complaints of muscle spasms a left leg currently is that the pain is tolerable. We will continue on when necessary Zanaflex. Patient participated in physical therapy progressing well. We will continue with current plan of care. Qualifiers: CVA mechanism: embolism Precerebral and cerebral artery: middle cerebral artery Laterality of affected vessel: right Qualified Code(s): I63.411 - Cerebral infarction due to embolism of right middle cerebral artery (2) COPD (chronic obstructive pulmonary disease) Current Visit: No Status: Chronic Assessment and plan: No acute issues. Lungs are clear throughout. We will continue with current bronchodilators and medications per plans. Qualifiers: COPD type: COPD with acute lower respiratory infection Qualified Code(s): J44.0 - Chronic obstructive pulmonary disease with acute lower respiratory infection (3) Tobacco abuse Current Visit: Yes Status: Acute Assessment and plan: Patient requesting to be allowed to go outside independently. Patient with known history of tobacco abuse. Reviewed with therapy and agree that patient remains a fall risk and currently is unable to be independent. We will continue with nicotine patch. - Time Spent With Patient less than 15 minutes - Subjective Interval history: Patient appears relaxed but continues with complaints of slight muscle spasms to her left leg. Patient on when necessary Zanaflex yesterday, but states she is not sure if she has taking that. Patient requesting to go out side independently, but patient with known history of tobacco abuse. Patient's current ability for independent ambulation was reviewed with therapy and will was thought to be unsafe as patient at times continues to require cueing and continues to be a fall risk. - Constitutional Vitals: Temp Pulse Resp BP Pulse Ox 98.5 F 85 14 135/79 92 11/18/18 09:23 11/18/18 09:23 11/18/18 09:23 11/18/18 09:23 11/18/18 09:23 General appearance: Present: cooperative, A&O X 3, pleasant, no acute distress, answers questions appropriately - Head Head exam: Present: atraumatic, normocephalic - Eye Eye exam: Present: PERRL, conjuntiva pink, sclera anicteric Pupils: Present: PERRL - Neck Neck exam general surgery: Present: supple, trachea midline. Absent: lymphadenopathy - Respiratory Respiratory exam: Present: CTAB. Absent: accessory muscle use, rales, rhonchi, wheezes - Cardiovascular Cardiovascular exam: Present: RRR, +S1, +S2. Absent: diastolic murmur, gallop, rubs, systolic murmur - GI/Abdominal GI/Abdominal exam: Present: normal bowel sounds, soft, no peritoneal signs. Absent: distended, tenderness - Extremities Exam Extremities exam: Present: warm, radial pulses palpable and symmetrical. Absent: calf tenderness, cyanotic, pedal edema - Neurological Exam Neurological exam: Present: CN II-XII intact, oriented X3. Absent: pronater drift, facial droop, speech deficit Additional comments: Patient continues to show left hemiplegia and continues to show left upper extremity contracture. He is with left facial droop and slight expressive aphasia. - Skin Skin exam: Present: dry, intact Internal Medicine: Result - Labs CBC & Chem 7: 11/15/18 05:30 11/17/18 06:15 - Stroke Is the patient on any antithrombotics?: Yes Are there any contradictions to antithrombotics?: No Contraindication Antithromb by Day Two: Drug Allergy to All Antithromobic Medications Consult Discharge Plan - Plan Referrals: Caesar Marquez MD [Primary Care Provider] -
[2018-11-18] MEDS: Docusate Oral Soln 100 MG/10 ML UDC PO SCH ×2 (11:03→20:11)
[2018-11-18] MEDS: tiZANidine 4 MG TABLET PO SCH ×4 (11:03→20:14)
[2018-11-18] MEDS: Sennosides 8.6 MG TABLET PO SCH (11:03)
[2018-11-18] MEDS: Nicotine 21 MG PATCH.TD24 TD SCH (11:03)
[2018-11-18] MEDS: Aspirin 81 MG TAB.CHEW PO SCH (11:03)
[2018-11-18] MEDS: levoFLOXacin 500 MG TABLET PO SCH (11:03)
[2018-11-18] MEDS: Melatonin 3 MG TABLET PO PRN (20:10)
[2018-11-18] MEDS: Acetaminophen 325 MG TABLET PO PRN (20:10)
[2018-11-19] MEDS: *HR* Enoxaparin 40 MG/0.4 ML SYRINGE SQ SCH (04:45)
[2018-11-19] MEDS: Acetaminophen 325 MG TABLET PO PRN ×2 (05:22→20:02)
--- NOTE | 2018-11-19 10:05 | Internal Med Progress Note ---
Date of Encounter: 11/19/18 Time of Encounter: 10:02 - Assessment and plan (1) CVA (cerebral vascular accident) Current Visit: Yes Status: Acute Assessment and plan: No acute issues. Patient continues with left hemiplegia effect with left upper extremity showing continue contracture. Continues with right facial droop and slight expressive aphasia. Patient continues with complaints of muscle spasms a left leg currently is that the pain is tolerable. We will continue on with necessary Zanaflex. Patient participated in physical therapy and reportedly has been progressing well. Noted to have increased drowsiness today with minimal participation with theapy. We will continue with current plan of care. Qualifiers: CVA mechanism: embolism Precerebral and cerebral artery: middle cerebral artery Laterality of affected vessel: right Qualified Code(s): I63.411 - Cerebral infarction due to embolism of right middle cerebral artery (2) COPD (chronic obstructive pulmonary disease) Current Visit: No Status: Chronic Assessment and plan: No acute issues. Lungs are clear throughout. Patient noted to have wet cough but no sputum has been received. Patient continues on Levaquin for for bronchitis with a stop date of tomorrow. She has remained afebrile We will continue with current bronchodilators and medications. Qualifiers: COPD type: COPD with acute lower respiratory infection Qualified Code(s): J44.0 - Chronic obstructive pulmonary disease with acute lower respiratory infection (3) Tobacco abuse Current Visit: Yes Status: Acute Assessment and plan: Patient continues requesting to be allowed to go outside independently. Patient with known history of tobacco abuse. Reviewed with therapy and agree that patient remains a fall risk and currently is unable to be independent. We will continue with nicotine patch. - Time Spent With Patient less than 15 minutes - Subjective Interval history: Patient appears relaxed but continues with complaints of slight muscle spasms to her left leg. Patient continues to request to go out side independently, but patient with known history of tobacco abuse. Patient's current ability for independent ambulation was reviewed with therapy and will was thought to be unsafe as patient at times continues to require cueing and continues to be a fall risk. Patient noted to have have difficulty participating in her therapy this morning, stating that she feels tired. He recently had increase in her medications to help promote sleep. - Constitutional Vitals: Temp Pulse Resp BP Pulse Ox 98.1 F 69 15 123/78 97 11/19/18 09:36 11/19/18 09:36 11/19/18 09:36 11/19/18 09:36 11/19/18 09:36 General appearance: Present: cooperative, A&O X 3, pleasant, no acute distress, answers questions appropriately - Head Head exam: Present: atraumatic, normocephalic - Eye Eye exam: Present: PERRL, conjuntiva pink, sclera anicteric Pupils: Present: PERRL - Neck Neck exam general surgery: Present: supple, trachea midline. Absent: lymphadenopathy - Respiratory Respiratory exam: Present: CTAB. Absent: accessory muscle use, rales, rhonchi, wheezes - Cardiovascular Cardiovascular exam: Present: RRR, +S1, +S2. Absent: diastolic murmur, gallop, rubs, systolic murmur - GI/Abdominal GI/Abdominal exam: Present: normal bowel sounds, soft, no peritoneal signs. Absent: distended, tenderness - Extremities Exam Extremities exam: Present: warm, radial pulses palpable and symmetrical. Absent: calf tenderness, cyanotic, pedal edema Additional comments: Noted contracture of left upper extremity. - Neurological Exam Neurological exam: Present: CN II-XII intact, oriented X3, facial droop, speech deficit. Absent: pronater drift Additional comments: Patient continues with left hemiplegia. Noted left upper extremity remains with bicep contracture. Right extremities with 5/5 muscle strength. Continue with slight expressive aphasia and right facial droop. - Skin Skin exam: Present: dry, intact Internal Medicine: Result - Labs CBC & Chem 7: 11/15/18 05:30 11/17/18 06:15 - Stroke Is the patient on any antithrombotics?: Yes Are there any contradictions to antithrombotics?: No Consult Discharge Plan - Plan Referrals: Caesar Marquez MD [Primary Care Provider] -
[2018-11-19] MEDS: tiZANidine 4 MG TABLET PO SCH ×4 (10:10→20:02)
[2018-11-19] MEDS: Aspirin 81 MG TAB.CHEW PO SCH (10:10)
[2018-11-19] MEDS: Docusate Oral Soln 100 MG/10 ML UDC PO SCH ×2 (10:10→20:01)
[2018-11-19] MEDS: levoFLOXacin 500 MG TABLET PO SCH (10:11)
[2018-11-19] MEDS: Nicotine 21 MG PATCH.TD24 TD SCH (10:11)
[2018-11-19] MEDS: Sennosides 8.6 MG TABLET PO SCH (10:12)
[2018-11-19] MEDS: Melatonin 3 MG TABLET PO PRN (20:02)
[2018-11-20] MEDS: *HR* Enoxaparin 40 MG/0.4 ML SYRINGE SQ SCH (05:15)
[2018-11-20] MEDS: levoFLOXacin 500 MG TABLET PO SCH (09:00)
[2018-11-20] MEDS: Sennosides 8.6 MG TABLET PO SCH (09:00)
[2018-11-20] MEDS: Aspirin 81 MG TAB.CHEW PO SCH (09:00)
[2018-11-20] MEDS: tiZANidine 4 MG TABLET PO SCH ×4 (09:01→20:11)
[2018-11-20] MEDS: Docusate Oral Soln 100 MG/10 ML UDC PO SCH ×2 (09:02→20:11)
[2018-11-20] MEDS: Nicotine 21 MG PATCH.TD24 TD SCH (09:08)
--- NOTE | 2018-11-20 11:58 | Internal Med Progress Note ---
Date of Encounter: 11/20/18 Time of Encounter: 11:00 - Assessment and plan (1) CVA (cerebral vascular accident) Current Visit: Yes Status: Acute Assessment and plan: She continues to improve with therapies but has minimal function of the left side. Will continue on, as planned. Qualifiers: CVA mechanism: embolism Precerebral and cerebral artery: middle cerebral artery Laterality of affected vessel: right Qualified Code(s): I63.411 - Cerebral infarction due to embolism of right middle cerebral artery (2) COPD (chronic obstructive pulmonary disease) Current Visit: No Status: Chronic Assessment and plan: Clinically stable with good airflow but recently treated for bronchitis. Cough has improved, as above. Qualifiers: COPD type: COPD with acute lower respiratory infection Qualified Code(s): J44.0 - Chronic obstructive pulmonary disease with acute lower respiratory infection (3) HTN (hypertension) Current Visit: Yes Status: Chronic Assessment and plan: Clinically stable and controlled. Qualifiers: Hypertension type: essential hypertension Qualified Code(s): I10 - Essential (primary) hypertension (4) Insomnia Current Visit: Yes Status: Acute Assessment and plan: She states that she slept well last night. We will continue as planned Qualifiers: Insomnia type: unspecified Qualified Code(s): G47.00 - Insomnia, unspecified (5) Tobacco abuse Current Visit: Yes Status: Acute Assessment and plan: On nicotine patch and we have encouraged her to stop smoking upon discharge. - Subjective Interval history: Patient denies problems. She notes her breathing is fine. Her cough is much improved, this morning. Bowels and bladder are working well, per her. Discussed care with other providers and/or nursing. Patient has no complaint of chest discomfort, dyspnea, orthopnea, palpitations, nausea or vomiting, constipation or diarrhea, other changes in bowel habits, difficulty with urination, rash or itching, or other new complaints, except as mentioned above. Review of systems is otherwise negative. . - Constitutional Vitals: Temp Pulse Resp BP Pulse Ox 97.6 F 70 18 129/77 97 11/20/18 08:21 11/20/18 08:21 11/20/18 08:21 11/20/18 08:21 11/20/18 08:21 Exam: Examination: (Except as mentioned above): General: In no apparent distress. Alert and oriented 3. Nondiaphoretic. Head: Atraumatic and normocephalic. Respiratory: No use of accessory muscles. Lungs are clear throughout. Normal airflow. Cardiovascular: Regular rate and rhythm without murmur appreciated. Abdomen: Bowel sounds are normal. No hepatosplenomegaly mass or tenderness appreciated. Obese and therefore difficult to palpate deeply. Extremities: No cyanosis clubbing or edema. Skin: Warm and non-diaphoretic with no new lesions noted. Neurologic: She still has left agnosia with dense left hemiparesis except plantar dorsiflexion is 2/5 at the left Internal Medicine: Result - Labs CBC & Chem 7: 11/15/18 05:30 11/17/18 06:15 - Stroke Is the patient on any antithrombotics?: Yes Are there any contradictions to antithrombotics?: No Contraindication Antithromb by Day Two: Drug Allergy to All Antithromobic Medications Consult Discharge Plan - Plan Referrals: Caesar Marquez MD [Primary Care Provider] -
[2018-11-20] MEDS: Potassium Chloride Elixir 20 MEQ/15 ML UDC PO SCH (16:56)
[2018-11-20] MEDS: Acetaminophen 325 MG TABLET PO PRN (21:10)
[2018-11-20] MEDS: Melatonin 3 MG TABLET PO PRN (21:11)
[2018-11-21] MEDS: *HR* Enoxaparin 40 MG/0.4 ML SYRINGE SQ SCH (05:05)
[2018-11-21] MEDS: Nicotine 21 MG PATCH.TD24 TD SCH (08:50)
[2018-11-21] MEDS: Aspirin 81 MG TAB.CHEW PO SCH (08:50)
[2018-11-21] MEDS: Sennosides 8.6 MG TABLET PO SCH (08:51)
[2018-11-21] MEDS: tiZANidine 4 MG TABLET PO SCH ×4 (08:51→20:07)
[2018-11-21] MEDS: Docusate Oral Soln 100 MG/10 ML UDC PO SCH ×2 (08:51→20:06)
[2018-11-21] MEDS: Potassium Chloride Elixir 20 MEQ/15 ML UDC PO SCH (08:51)
--- NOTE | 2018-11-21 15:08 | Internal Med Progress Note ---
Date of Encounter: 11/21/18 Time of Encounter: 15:07 - Assessment and plan (1) CVA (cerebral vascular accident) Current Visit: Yes Status: Acute Assessment and plan: She will resume therapies after holiday weekend. Qualifiers: CVA mechanism: embolism Precerebral and cerebral artery: middle cerebral artery Laterality of affected vessel: right Qualified Code(s): I63.411 - Cerebral infarction due to embolism of right middle cerebral artery (2) COPD (chronic obstructive pulmonary disease) Current Visit: No Status: Chronic Assessment and plan: Clinically stable with out signs or symptoms, currently. Qualifiers: COPD type: COPD with acute lower respiratory infection Qualified Code(s): J44.0 - Chronic obstructive pulmonary disease with acute lower respiratory in fection (3) HTN (hypertension) Current Visit: Yes Status: Chronic Assessment and plan: We will continue current regimen. Qualifiers: Hypertension type: essential hypertension Qualified Code(s): I10 - Essential (primary) hypertension (4) Insomnia Current Visit: Yes Status: Acute Assessment and plan: Improving. Qualifiers: Insomnia type: unspecified Qualified Code(s): G47.00 - Insomnia, unsp ecified (5) Tobacco abuse Current Visit: Yes Status: Acute Assessment and plan: On nicotine patch. (6) Constipation Current Visit: Yes Status: Acute Assessment and plan: We will give half dose of magnesium citrate. Qualifiers: Constipation type: slow transit constipation Qualified Code(s): K59.01 - Slow transit constipation - Subjective Interval history: Patient has had a bowel movement for 5 days and is beginning to feel mild abdominal pain because of this. We agreed that she needs a different laxative although she states that she has had not received any laxatives. Discussed care with other providers and/or nursing. Patient has no complaint of chest discomfort, dyspnea, orthopnea, palpitations, nausea or vomiting, constipation or diarrhea, other changes in bowel habits, difficulty with urination, rash or itching, or other new complaints, except as mentioned above. Review of systems is otherwise negative. . - Constitutional Vitals: Temp Pulse Resp BP Pulse Ox 98.2 F 79 16 125/80 96 11/21/18 08:56 11/21/18 08:56 11/21/18 08:56 11/21/18 08:56 11/21/18 08:56 Exam: Examination: (Except as mentioned above): General: In no apparent distress. Alert and oriented 3. Nondiaphoretic. Head: Atraumatic and normocephalic. Respiratory: No use of accessory muscles. Lungs are clear throughout. Normal airflow. Cardiovascular: Regular rate and rhythm without murmur appreciated. Abdomen: Bowel sounds are normal. No hepatosplenomegaly or mass but does have mild abdominal tenderness. There is no guarding or rebound or mass effect. Obese and therefore difficult to palpate deeply. Extremities: No cyanosis clubbing or edema. Skin: Warm and non-diaphoretic with no new lesions noted. Internal Medicine: Result - Labs CBC & Chem 7: 11/22/18 06:59 11/17/18 06:15 - Stroke Is the patient on any antithrombotics?: Yes Are there any contradictions to antithrombotics?: No Contraindication Antithromb by Day Two: Drug Allergy to All Antithromobic Medications Consult Discharge Plan - Plan Referrals: Caesar Marquez MD [Primary Care Provider] -
[2018-11-21 17:07] LABS: Bilirubin,Urine Negative (Negative); Blood,Urine Negative (Negative); Clarity,Urine Clear (Clear); Color,Urine Yellow (Yellow); Glucose,Urine (UA) Normal (Normal); Ketones,Urine Negative (Negative); Leukocyte Esterase,Urine Negative (Negative); Nitrite,Urine Negative (Negative); Protein,Urine 30 mg/dL (Neg-Trace); Urobilinogen,Urine Normal (Normal)
[2018-11-21 17:08] LABS: Amorphous Sediment,Urine Few (Few); Squamous Epithelial Cell,Urine Few per lpf (None-Few)
[2018-11-21] MEDS: Acetaminophen 325 MG TABLET PO PRN (20:06)
[2018-11-21] MEDS: Melatonin 3 MG TABLET PO PRN (20:06)
[2018-11-22] MEDS: *HR* Enoxaparin 40 MG/0.4 ML SYRINGE SQ SCH (04:51)
[2018-11-22 07:12] LABS: Basophils # 0.1 K/mcL (0.0-0.2); Basophils % 0.7 %; Eosinophils # 0.2 K/mcL (0.0-0.6); Eosinophils % 1.9 %; Hematocrit 45.1 % (35.3-44.9); Hemoglobin 14.5 g/dL (11.5-15.4); Immature Granulocytes % 0.4 % (0-4); Lymphocytes # 2.7 K/mcL (0.6-4.6); Lymphocytes % 29.3 %; Mean Corpuscular HGB Conc 32.2 g/dL (31.6-35.5); Mean Corpuscular Volume 83.8 fL (83.0-100.0); Mean Platelet Volume 9.2 fL (9.4-12.4); Monocytes # 0.6 K/mcL (0.0-1.3); Monocytes % 6.6 %; Neutrophils # 5.5 K/mcL (1.6-8.9); Platelet Count 382 K/mcL (140-400); Red Blood Count 5.38 M/mcL (3.82-4.97); Red Cell Distribution Width 13.2 % (11.5-14.5); Segmented Neutrophils % 61.1 %; White Blood Count 9.1 K/mcL (4.3-11.1)
[2018-11-22] MEDS: Aspirin 81 MG TAB.CHEW PO SCH (09:48)
[2018-11-22] MEDS: Potassium Chloride Elixir 20 MEQ/15 ML UDC PO SCH (09:48)
[2018-11-22] MEDS: Docusate Oral Soln 100 MG/10 ML UDC PO SCH ×2 (09:48→20:07)
[2018-11-22] MEDS: tiZANidine 4 MG TABLET PO SCH ×4 (09:48→20:06)
[2018-11-22] MEDS: Sennosides 8.6 MG TABLET PO SCH (09:48)
[2018-11-22] MEDS: Nicotine 21 MG PATCH.TD24 TD SCH (09:49)
--- NOTE | 2018-11-22 12:22 | Internal Med Progress Note ---
Date of Encounter: 11/22/18 Time of Encounter: 12:19 - Assessment and plan (1) CVA (cerebral vascular accident) Current Visit: Yes Status: Acute Assessment and plan: She still has dense left hemiparesis. 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 Therapy is to resume tomorrow, after holiday. Qualifiers: CVA mechanism: embolism Precerebral and cerebral artery: middle cerebral artery Laterality of affected vessel: right Qualified Code(s): I63.411 - Cerebral infarction due to embolism of right middle cerebral artery (2) COPD (chronic obstructive pulmonary disease) Current Visit: No Status: Chronic Assessment and plan: Clinically stable. Qualifiers: COPD type: COPD with acute lower respiratory infection Qualified Code(s): J44.0 - Chronic obstructive pulmonary disease with acute lower respiratory infection (3) HTN (hypertension) Current Visit: Yes Status: Chronic Assessment and plan: Adequately controlled. Qualifiers: Hypertension type: essential hypertension Qualified Code(s): I10 - Esse ntial (primary) hypertension (4) Insomnia Current Visit: Yes Status: Acute Assessment and plan: Improving. Qualifiers: Insomnia type: unspecified Qualified Code(s): G47.00 - Insomnia, unspecified (5) Tobacco abuse Current Visit: Yes Status: Acute Assessment and plan: She is still on nicotine patch. (6) Constipation Current Visit: Yes Status: Acute Assessment and plan: We will reorder magnesium citrate, as discussed. Qualifiers: Constipation type: slow transit constipation Qualified Code(s): K59.01 - Slow transit constipation - Subjective Interval history: Patient is without complaint. On further questioning, she still has not had a bowel movement. We agreed to give her more magnesium citrate and follow. She still has feeling of mild abdominal discomfort. Discussed care with other providers and/or nursing. Patient has no complaint of chest discomfort, dyspnea, orthopnea, palpitations, nausea or vomiting, constipation or diarrhea, other changes in bowel habits, difficulty with urination, rash or itching, or other new complaints, except as mentioned above. Review of systems is otherwise negative. . - Constitutional Vitals: Temp Pulse Resp BP Pulse Ox 97.6 F 76 16 148/85 95 11/22/18 07:10 11/22/18 07:10 11/22/18 07:10 11/22/18 07:10 11/22/18 07:10 Exam: Examination: (Except as mentioned above): General: In no apparent distress. Alert and oriented 3. Nondiaphoretic. Head: Atraumatic and normocephalic. Respiratory: No use of accessory muscles. Lungs are clear throughout. Normal airflow. Cardiovascular: Regular rate and rhythm without murmur appreciated. Abdomen: Bowel sounds are normal. No hepatosplenomegaly or mass but has mild tenderness without guarding or rebound. This is diffuse. Obese and therefore difficult to palpate deeply. Patient is examined upright in chair and this also limits exam. Extremities: No cyanosis clubbing or edema. Skin: Warm and non-diaphoretic with no new lesions noted. Internal Medicine: Result - Labs CBC & Chem 7: 11/22/18 06:59 11/17/18 06:15 Labs: Short CBC 11/22/18 Range/Units 06:59 WBC 9.1 (4.3-11.1) K/mcL Hgb 14.5 (11.5-15.4) g/dL Hct 45.1 H (35.3-44.9) % Plt Count 382 (140-400) K/mcL Neutrophils # 5.5 (1.6-8.9) K/mcL Urine 11/21/18 Range/Units 16:33 Urine Color Yellow (Yellow) Urine Clarity Clear (Clear) Urine pH 7.0 (5.0-8.0) pH Units Ur Specific [place] 1.020 (1.010-1.025) Urine Protein 30 H (Neg-Trace) mg/dL Urine Glucose (UA) Normal (Normal) mg/dL - Stroke Is the patient on any antithrombotics?: Yes Are there any contradictions to antithrombotics?: No Contraindication Antithromb by Day Two: Drug Allergy to All Antithromobic Medications Consult Discharge Plan - Plan Referrals: Caesar Marquez MD [Primary Care Provider] -
[2018-11-22] MEDS: Melatonin 3 MG TABLET PO PRN (20:06)
[2018-11-22] MEDS: Acetaminophen 325 MG TABLET PO PRN (20:07)
[2018-11-23] MEDS: *HR* Enoxaparin 40 MG/0.4 ML SYRINGE SQ SCH (06:59)
[2018-11-23] MEDS: tiZANidine 4 MG TABLET PO SCH ×4 (08:12→20:41)
[2018-11-23] MEDS: Aspirin 81 MG TAB.CHEW PO SCH (08:12)
[2018-11-23] MEDS: Sennosides 8.6 MG TABLET PO SCH (08:12)
[2018-11-23] MEDS: Docusate Oral Soln 100 MG/10 ML UDC PO SCH ×2 (08:13→20:38)
[2018-11-23] MEDS: Potassium Chloride Elixir 20 MEQ/15 ML UDC PO SCH (08:13)
[2018-11-23] MEDS: Nicotine 21 MG PATCH.TD24 TD SCH (08:13)
--- NOTE | 2018-11-23 11:27 | Internal Med Progress Note ---
Date of Encounter: 11/23/18 Time of Encounter: 11:25 - Assessment and plan (1) CVA (cerebral vascular accident) Current Visit: Yes Status: Acute Assessment and plan: No acute issues. Patient continues with left hemiplegia effect with left upper extremity showing continue contracture. Continues with right facial droop and slight expressive aphasia. Patient continues with complaints of slight muscle spasms a left leg and continues with contracture to the LUE. We will continue on with necessary Zanaflex. Patient participated in physical therapy and reportedly has been progressing well. Noted to have continued drowsiness today with minimal participation with theapy. We will continue with current plan of care. Qualifiers: CVA mechanism: embolism Precerebral and cerebral artery: middle cerebral artery Laterality of affected vessel: right Qualified Code(s): I63.411 - Cerebral infarction due to embolism of right middle cerebral artery (2) COPD (chronic obstructive pulmonary disease) Current Visit: No Status: Chronic Assessment and plan: No acute issues. Lungs are clear throughout. Patient noted to have wet cough but no sputum has been received. Patient rec'd a run of [employer] app, which finished on Thursday. She has remained afebrile We will continue with current bronchodilators and medications. Qualifiers: COPD type: COPD with acute lower respiratory infection Qualified Code(s): J44.0 - Chronic obstructive pulmonary disease with acute lower respiratory infection - Time Spent With Patient less than 15 minutes - Subjective Interval history: Patient appears relaxed but continues with complaints of slight muscle spasms to her left leg. Therapy states that patient had increased contracture to her LUE this morning. Patient noted to have have difficulty participating in her therapy this morning, stating that she feels tired. Nurse reports patient has been awake through most of the night. Nurse reports patient continues with constipation. Patient reportedly had received a bottle of mag citrate yesterday with no results. Patient denies any abdominal cramping or pain. - Constitutional Vitals: Temp Pulse Resp BP Pulse Ox 97.8 F 81 18 131/81 96 11/23/18 07:29 11/23/18 07:29 11/23/18 07:29 11/23/18 07:29 11/23/18 07:29 General appearance: Present: cooperative, A&O X 3, pleasant, no acute distress, answers questions appropriately Exam: drowsy - Head Head exam: Present: atraumatic, normocephalic - Eye Eye exam: Present: PERRL, conjuntiva pink, sclera anicteric Pupils: Present: PERRL - Neck Neck exam general surgery: Present: supple, trachea midline. Absent: lymphadenopathy - Respiratory Respiratory exam: Present: CTAB. Absent: accessory muscle use, rales, rhonchi, wheezes - Cardiovascular Cardiovascular exam: Present: RRR, +S1, +S2. Absent: diastolic murmur, gallop, rubs, systolic murmur - GI/Abdominal GI/Abdominal exam: Present: normal bowel sounds, soft, no peritoneal signs. Absent: distended, tenderness - Extremities Exam Extremities exam: Present: warm, radial pulses palpable and symmetrical. Absent: calf tenderness, cyanotic, pedal edema - Neurological Exam Neurological exam: Present: CN II-XII intact, oriented X3, no focal deficits. Absent: pronater drift, facial droop, speech deficit - Skin Skin exam: Present: dry, intact Internal Medicine: Result - Labs CBC & Chem 7: 11/22/18 06:59 11/17/18 06:15 - Stroke Is the patient on any antithrombotics?: Yes Are there any contradictions to antithrombotics?: No Consult Discharge Plan - Plan Referrals: Caesar Marquez MD [Primary Care Provider] -
[2018-11-23] MEDS: Melatonin 3 MG TABLET PO PRN (20:42)
[2018-11-23] MEDS: Acetaminophen 325 MG TABLET PO PRN (20:42)
[2018-11-24] MEDS: *HR* Enoxaparin 40 MG/0.4 ML SYRINGE SQ SCH (04:41)
[2018-11-24] MEDS: Aspirin 81 MG TAB.CHEW PO SCH (09:12)
[2018-11-24] MEDS: tiZANidine 4 MG TABLET PO SCH ×4 (09:12→21:37)
[2018-11-24] MEDS: Sennosides 8.6 MG TABLET PO SCH (09:12)
[2018-11-24] MEDS: Potassium Chloride Elixir 20 MEQ/15 ML UDC PO SCH (09:13)
[2018-11-24] MEDS: Nicotine 21 MG PATCH.TD24 TD SCH (09:13)
[2018-11-24] MEDS: Docusate Oral Soln 100 MG/10 ML UDC PO SCH ×2 (09:13→21:37)
--- NOTE | 2018-11-24 13:48 | Internal Med Progress Note ---
Date of Encounter: 11/24/18 Time of Encounter: 11:55 - Assessment and plan (1) CVA (cerebral vascular accident) Current Visit: Yes Status: Acute Assessment and plan: She is sometimes an upper dissipating with therapy. Family meeting is planned soon so that long-term care can be determined. Qualifiers: CVA mechanism: embolism Precerebral and cerebral artery: middle cerebral artery Laterality of affected vessel: right Qualified Code(s): I63.411 - Cerebral infarction due to embolism of right middle cerebral artery (2) COPD (chronic obstructive pulmonary disease) Current Visit: No Status: Chronic Assessment and plan: Clinically stable. Qualifiers: COPD type: COPD with acute lower respiratory infection Qualified Code(s): J44.0 - Chronic obstructive pulmonary disease with acute lower respiratory infection (3) HTN (hypertension) Current Visit: Yes Status: Chronic Assessment and plan: Stable on current regimen. Qualifiers: Hypertension type: essential hypertension Qualified Code(s): I10 - Essential (primary) hypertension (4) Insomnia Current Visit: Yes Status: Acute Assessment and plan: Improved. Just began yesterday with Seroquel so will need to watch. Qualifiers: Insomnia type: unspecified Qualified Code(s): G47.00 - Insomnia, unspecified (5) Tobacco abuse Current Visit: Yes Status: Acute Assessment and plan: On nicotine patch (6) Constipation Current Visit: Yes Status: Acute Assessment and plan: Improved with magnesium citrate. Qualifiers: Constipation type: slow transit constipation Qualified Code(s): K59.01 - Slow transit constipation - Subjective Interval history: Patient is without complaint. She states she is tired after physical therapy. She had a large bowel movement is feeling much better from that standpoint. She denies abdominal pain or distress. No nausea. She has on occasion been out with family who provided her cigarettes per staff. For this reason, she is not allowed to be outside without therapy. In addition, she should be watched in terms of safety. Discussed care with other providers and/or nursing. Patient has no complaint of chest discomfort, dyspnea, orthopnea, palpitations, nausea or vomiting, constipation or diarrhea, other changes in bowel habits, difficulty with urination, rash or itching, or other new complaints, except as mentioned above. Review of systems is otherwise negative. . - Constitutional Vitals: Temp Pulse Resp BP Pulse Ox 98.0 F 83 16 112/75 96 05/29/19 07:30 11/24/18 07:30 11/24/18 07:30 11/24/18 07:30 11/24/18 07:30 Exam: Examination: (Except as mentioned above): General: In no apparent distress. Alert and oriented 3. Nondiaphoretic. Head: Atraumatic and normocephalic. Respiratory: No use of accessory muscles. Lungs are clear throughout. Normal airflow. Cardiovascular: Regular rate and rhythm without murmur appreciated. Abdomen: Bowel sounds are normal. No hepatosplenomegaly mass or tenderness appreciated. Obese and therefore difficult to palpate deeply. Extremities: No cyanosis clubbing or edema. Skin: Warm and non-diaphoretic with no new lesions noted. Neurologic: Still has left facial weakness and dense left hemiparesis. She also has left agnosia. Internal Medicine: Result - Labs CBC & Chem 7: 11/22/18 06:59 11/17/18 06:15 - Stroke Is the patient on any antithrombotics?: Yes Are there any contradictions to antithrombotics?: No Contraindication Antithromb by Day Two: Drug Allergy to All Antithromobic Medications Consult Discharge Plan - Plan Referrals: Caesar Marquez MD [Primary Care Provider] -
--- NOTE | 2018-11-24 16:27 | Rehab Psychology Progress Note ---
Date of Encounter: 11/24/18 Time of Encounter: 11:00 Subjective - Patient Report Patient Report: Feeling "OK" and wants to go home. - Symptoms Symptoms: Withdrawn and lacks awareness/insight into limitations and ability level. Objective - WHODAS Functional Impairment Concentration, Problem-solving, Communication: Moderate Social Functioning: Severe - Comments Functional Status Comments: Dysarthria makes communication challenging. She discussed alcohol intake 3 weeks prior to this event and stated she would drink 10 beers in sitting. She stated she went "cold turkey" with both alcohol and smoking then. - Mental Status Mental Status Changes: She stated memory coming back a little. OX2 not date/yr. Knew month. 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
[2018-11-24] MEDS: Melatonin 3 MG TABLET PO PRN (21:42)
[2018-11-25] MEDS: *HR* Enoxaparin 40 MG/0.4 ML SYRINGE SQ SCH (06:28)
[2018-11-25] MEDS: Aspirin 81 MG TAB.CHEW PO SCH (09:19)
[2018-11-25] MEDS: Docusate Oral Soln 100 MG/10 ML UDC PO SCH ×2 (09:19→20:37)
[2018-11-25] MEDS: tiZANidine 4 MG TABLET PO SCH ×4 (09:19→20:39)
[2018-11-25] MEDS: Sennosides 8.6 MG TABLET PO SCH (09:19)
[2018-11-25] MEDS: Potassium Chloride Elixir 20 MEQ/15 ML UDC PO SCH (09:20)
[2018-11-25] MEDS: Nicotine 21 MG PATCH.TD24 TD SCH (09:20)
--- NOTE | 2018-11-25 10:31 | Internal Med Progress Note ---
Date of Encounter: 11/25/18 Time of Encounter: 10:29 - Assessment and plan (1) CVA (cerebral vascular accident) Current Visit: Yes Status: Acute Assessment and plan: No acute issues. Patient continues with left hemiplegia effect with left upper extremity showing continue contracture. Continues with right facial droop and slight expressive aphasia. Patient continues with complaints of slight muscle spasms a left leg and continues with contracture to the LUE. We will continue on with necessary Zanaflex. Patient participated in physical therapy and reportedly has been progressing well. Noted to have continued drowsiness in the mornings with minimal participation with theapy. Patient recently started on Seroquel at at bedtime to improve her sleep. We will continue with current plan of care. Qualifiers: CVA mechanism: embolism Precerebral and cerebral artery: middle cerebral artery Laterality of affected vessel: right Qualified Code(s): I63.411 - Cerebral infarction due to embolism of right middle cerebral artery (2) COPD (chronic obstructive pulmonary disease) Current Visit: No Status: Chronic Assessment and plan: No acute issues. Lungs are clear throughout. Patient noted to have wet cough but no sputum has been received. Patient rec'd a run of [employer], which finished on Thursday. She has remained afebrile We will continue with current bronchodilators and medications. Qualifiers: COPD type: COPD with acute lower respiratory infection Qualified Code(s): J44.0 - Chronic obstructive pulmonary disease with acute lower respiratory infec tion (3) Insomnia Current Visit: Yes Status: Acute Assessment and plan: Patient continues to have difficulty with sleep at night. Patient currently on Elavil and Seroquel at bedtime. Patient also takes melatonin at bedtime. We will continue to monitor effects. Qualifiers: Insomnia type: unspecified Qualified Code(s): G47.00 - Insomnia, unspe cified - Time Spent With Patient less than 15 minutes - Subjective Interval history: Patient appears relaxed and denies any dyspnea or discomforts, but does continue with complaints of slight muscle spasms to her left leg. Therapy states that patient had increased contracture to her LUE over the past few days. Patient noted to have have difficulty participating in her therapy in the mornings, stating that she feels tired. Patient has had a recent Seroquel at at bedtime ordered to improved sleep - Constitutional Vitals: Temp Pulse Resp BP Pulse Ox 97.6 F 77 14 133/84 96 11/25/18 07:34 11/25/18 07:34 11/25/18 07:34 11/25/18 07:34 11/25/18 07:34 General appearance: Present: cooperative, A&O X 3, pleasant, no acute distress, answers questions appropriately - Head Head exam: Present: atraumatic, normocephalic - Eye Eye exam: Present: PERRL, conjuntiva pink, sclera anicteric Pupils: Present: PERRL - Neck Neck exam general surgery: Present: supple, trachea midline. Absent: lymphadenopathy - Respiratory Respiratory exam: Present: CTAB. Absent: accessory muscle use, rales, rhonchi, wheezes - Cardiovascular Cardiovascular exam: Present: RRR, +S1, +S2. Absent: diastolic murmur, gallop, rubs, systolic murmur - GI/Abdominal GI/Abdominal exam: Present: normal bowel sounds, soft, no peritoneal signs. Absent: distended, tenderness - Extremities Exam Extremities exam: Present: warm, radial pulses palpable and symmetrical. Abs ent: calf tenderness, cyanotic, pedal edema - Neurological Exam Neurological exam: Present: CN II-XII intact, oriented X3, facial droop. Absent: pronater drift, speech deficit Additional comments: Continues with left hemiplegia and noted contracture of left upper extremity. Patient also continues with right facial droop and dysarthria. Right extremities at 5/5 muscle strength. - Skin Skin exam: Present: dry, intact Internal Medicine: Result - Labs CBC & Chem 7: 11/22/18 06:59 11/17/18 06:15 - Stroke Is the patient on any antithrombotics?: Yes Are there any contradictions to antithrombotics?: No Consult Discharge Plan - Plan Referrals: Caesar Marquez MD [Primary Care Provider] -
[2018-11-25] MEDS: Melatonin 3 MG TABLET PO PRN (20:39)
[2018-11-25] MEDS: Acetaminophen 325 MG TABLET PO PRN (20:39)
[2018-11-26] MEDS: *HR* Enoxaparin 40 MG/0.4 ML SYRINGE SQ SCH (04:58)
[2018-11-26 06:16] LABS: Mean Corpuscular HGB Conc 32.5 g/dL (31.6-35.5); Mean Corpuscular Hemoglobin 27.3 pg (28.0-33.3); Mean Corpuscular Volume 83.9 fL (83.0-100.0); Mean Platelet Volume 9.5 fL (9.4-12.4); Platelet Count 309 K/mcL (140-400); Red Blood Count 4.77 M/mcL (3.82-4.97); Red Cell Distribution Width 13.2 % (11.5-14.5); White Blood Count 9.4 K/mcL (4.3-11.1)
[2018-11-26 06:53] LABS: Alanine Aminotransferase 25 Units/L (7-52); Albumin 3.6 g/dL (3.5-5.7); Albumin/Globulin Ratio 1.3 (1.1-2.2); Alkaline Phosphatase 94 Units/L (34-104); Aspartate Amino Transferase 21 Units/L (13-39); BUN/Creatinine Ratio 37 (6-26); Bilirubin,Total 0.3 mg/dL (0.3-1.0); Blood Urea Nitrogen 29 mg/dL (8-23); Calcium 9.1 mg/dL (8.6-10.3); Carbon Dioxide 24 mEq/L (23-29); Chloride 105 mEq/L (98-107); Globulin 2.7 g/dL (2.4-3.5); Glucose 107 mg/dL (70-105); Magnesium 2.3 mg/dL (1.6-2.6); Osmolality,Calculated 286 (280-300); Potassium 4.3 mEq/L (3.5-5.1); Sodium 135 mEq/L (136-145); Total Protein 6.3 g/dL (6.4-8.9); eGFR For African Americans > 60 (> 60); eGFR For Non-African Americans > 60 (> 60)
[2018-11-26] MEDS: tiZANidine 4 MG TABLET PO SCH ×4 (08:40→21:06)
[2018-11-26] MEDS: Acetaminophen 325 MG TABLET PO PRN ×2 (08:40→21:06)
[2018-11-26] MEDS: Sennosides 8.6 MG TABLET PO SCH (08:40)
[2018-11-26] MEDS: Aspirin 81 MG TAB.CHEW PO SCH (08:40)
[2018-11-26] MEDS: Nicotine 21 MG PATCH.TD24 TD SCH (08:41)
[2018-11-26] MEDS: Docusate Oral Soln 100 MG/10 ML UDC PO SCH ×2 (08:41→21:04)
[2018-11-26] MEDS: Potassium Chloride Elixir 20 MEQ/15 ML UDC PO SCH (08:41)
--- NOTE | 2018-11-26 11:00 | Internal Med Progress Note ---
Date of Encounter: 11/26/18 Time of Encounter: 10:58 - Assessment and plan (1) CVA (cerebral vascular accident) Current Visit: Yes Status: Acute Assessment and plan: Continue PT, OT and ST. Will follow progress. No new neurological deficits at this time. Follow up with neuro as scheduled. Family meeting on for discharge planning Qualifiers: CVA mechanism: embolism Precerebral and cerebral artery: middle cerebral artery Laterality of affected vessel: right Qualified Code(s): I63.411 - Cerebral infarction due to embolism of right middle cerebral artery (2) HTN (hypertension) Current Visit: Yes Status: Chronic Qualifiers: Hypertension type: essential hypertension Qualified Code(s): I10 - Essential (primary) hypertension (3) Insomnia Current Visit: Yes Status: Acute Assessment and plan: \Improved with increasing melatonin. Qualifiers: Insomnia type: unspecified Qualified Code(s): G47.00 - Insomnia, unspecified - Time Spent With Patient less than 15 minutes - Subjective Interval history: Patient participating well with therapy. Not making much progress over the past few days. Family meeting scheduled for one o'clock on . No new neurological deficits. denies any pain, fever, chills, NVD. denies SOB or chest pain. pocketing food in left, requires cueing to clear. - Constitutional Vitals: Temp Pulse Resp BP Pulse Ox 98.0 F 80 16 113/76 97 11/26/18 07:14 11/26/18 07:14 11/26/18 07:14 11/26/18 07:14 11/26/18 07:14 General appearance: Present: cooperative, A&O X 3, pleasant, no acute distress, answers questions appropriately Exam: Left-sided neglect, left-sided hemiplegia, left facial droop. Dysarthria - Head Head exam: Present: atraumatic, normocephalic - Eye Eye exam: Present: PERRL, conjuntiva pink, sclera anicteric Pupils: Present: PERRL - Neck Neck exam general surgery: Present: supple, trachea midline. Absent: lymphadenopathy - Respiratory Respiratory exam: Present: CTAB. Absent: accessory muscle use, rales, rhonchi, wheezes - Cardiovascular Cardiovascular exam: Present: irregular rhythm, +S1, +S2. Absent: diastolic murmur, gallop, rubs, systolic murmur - GI/Abdominal GI/Abdominal exam: Present: normal bowel sounds, soft, no peritoneal signs. Absent: distended, tenderness - Extremities Exam Extremities exam: Present: warm, radial pulses palpable and symmetrical. Absent: calf tenderness, cyanotic, pedal edema Additional comments: Left-sided hemiplegia - Neurological Exam Neurological exam: Present: CN II-XII intact, oriented X3, no focal deficits. Absent: pronater drift, facial droop, speech deficit - Skin Skin exam: Present: dry, intact Internal Medicine: Result - Labs CBC & Chem 7: 11/26/18 06:00 11/26/18 06:00 Labs: Short CBC 11/26/18 Range/Units 06:00 WBC 9.4 (4.3-11.1) K/mcL Hgb 13.0 D (11.5-15.4) g/dL Hct 40.0 (35.3-44.9) % Plt Count 309 (140-400) K/mcL BMP 11/26/18 06:00 Sodium 135 L Potassium 4.3 Chloride 105 Carbon Dioxide 24 BUN 29 H Creatinine 0.79 Glucose 107 H Calcium 9.1 Liver Function 11/26/18 Range/Units 06:00 Total Bilirubin 0.3 (0.3-1.0) mg/dL AST 21 (13-39) Units/L ALT 25 (7-52) Units/L Alkaline Phosphatase 94 (34-104) Units/L Albumin 3.6 (3.5-5.7) g/dL - Stroke Is the patient on any antithrombotics?: Yes Are there any contradictions to antithrombotics?: No Contraindication Antithromb by Day Two: Drug Allergy to All Antithromobic Medications Consult Discharge Plan - Plan Referrals: Caeasr Marquez MD [Primary Care Provider] -
[2018-11-26] MEDS: Melatonin 3 MG TABLET PO PRN (21:05)
[2018-11-27] MEDS: *HR* Enoxaparin 40 MG/0.4 ML SYRINGE SQ SCH (04:12)
[2018-11-27] MEDS: Sennosides 8.6 MG TABLET PO SCH (08:45)
[2018-11-27] MEDS: Potassium Chloride Elixir 20 MEQ/15 ML UDC PO SCH (08:45)
[2018-11-27] MEDS: tiZANidine 4 MG TABLET PO SCH ×4 (08:45→20:46)
[2018-11-27] MEDS: Nicotine 21 MG PATCH.TD24 TD SCH (08:45)
[2018-11-27] MEDS: Docusate Oral Soln 100 MG/10 ML UDC PO SCH ×2 (08:45→20:43)
[2018-11-27] MEDS: Aspirin 81 MG TAB.CHEW PO SCH (08:45)
--- NOTE | 2018-11-27 15:42 | Internal Med Progress Note ---
Date of Encounter: 11/28/18 Time of Encounter: 02:55 - Subjective Interval history: - Assessment and plan (1) CVA (cerebral vascular accident) Current Visit: Yes Status: Acute Assessment and plan: Continue PT, OT and ST. Will follow progress. No new neurological deficits at this time. Follow up with neuro as scheduled. Family meeting on for discharge planning Qualifiers: CVA mechanism: embolism Precerebral and cerebral artery: middle cerebral artery Laterality of affected vessel: right Qualified Code(s): I63.411 - Cerebral infarction due to embolism of right middle cerebral artery (2) HTN (hypertension) Current Visit: Yes Status: Chronic Qualifiers: Hypertension type: essential hypertension Qualified Code(s): I10 - Essential (primary) hypertension (3) Insomnia Current Visit: Yes Status: Acute Assessment and plan: \Improved with increasing melatonin. Qualifiers: Insomnia type: unspecified Qualified Code(s): G47.00 - Insomnia, unspecified - Time Spent With Patient less than 15 minutes - Subjective Interval history: Patient participating well with therapy. Not making much progress over the past few days. Family meeting scheduled for one o'clock on . No new neurological deficits. denies any pain, fever, chills, NVD. denies SOB or chest pain. pocketing food in left, requires cueing to clear. - EXAM General appearance: Present: cooperative, A&O X 3, pleasant, no acute distress, answers questions appropriately Exam: Left-sided neglect, left-sided hemiplegia, left facial droop. Dysarthria - Head Head exam: Present: atraumatic, normocephalic - Eye Eye exam: Present: PERRL, conjuntiva pink, sclera anicteric Pupils: Present: PERRL - Neck Neck exam general surgery: Present: supple, trachea midline. Absent: lymphadenopathy - Respiratory Respiratory exam: Present: CTAB. Absent: accessory muscle use, rales, rhonchi, wheezes - Cardiovascular Cardiovascular exam: Present: irregular rhythm, +S1, +S2. Absent: diastolic murmur, gallop, rubs, systolic murmur - GI/Abdominal GI/Abdominal exam: Present: normal bowel sounds, soft, no peritoneal signs. Absent: distended, tenderness - Extremities Exam Extremities exam: Present: warm, radial pulses palpable and symmetrical. Absent: calf tenderness, cyanotic, pedal edema Additional comments: Left-sided hemiplegia - Neurological Exam Neurological exam: Present: CN II-XII intact, oriented X3, no focal deficits. Absent: pronater drift, facial droop, speech deficit - Skin Skin exam: Present: dry, intact - Constitutional Vitals: Temp Pulse Resp BP Pulse Ox 98.1 F 85 16 113/72 93 11/27/18 07:28 11/27/18 07:28 11/27/18 07:28 11/27/18 07:28 11/27/18 07:28 General appearance: Present: cooperative, A&O X 3, pleasant, no acute distress, answers questions appropriately Internal Medicine: Result - Labs CBC & Chem 7: 11/26/18 06:00 11/26/18 06:00 - Stroke Is the patient on any antithrombotics?: Yes Contraindication Antithromb by Day Two: Drug Allergy to All Antithromobic Medications Consult Discharge Plan - Plan Referrals: Caesar Marquez MD [Primary Care Provider] -
[2018-11-27] MEDS: Acetaminophen 325 MG TABLET PO PRN (17:59)
[2018-11-27] MEDS: Melatonin 3 MG TABLET PO PRN (20:45)
[2018-11-28] MEDS: *HR* Enoxaparin 40 MG/0.4 ML SYRINGE SQ SCH (04:04)
[2018-11-28] MEDS: Acetaminophen 325 MG TABLET PO PRN ×3 (04:05→21:13)
[2018-11-28] MEDS: Potassium Chloride Elixir 20 MEQ/15 ML UDC PO SCH (10:40)
[2018-11-28] MEDS: Nicotine 21 MG PATCH.TD24 TD SCH (10:40)
[2018-11-28] MEDS: Aspirin 81 MG TAB.CHEW PO SCH (10:40)
[2018-11-28] MEDS: Sennosides 8.6 MG TABLET PO SCH (10:40)
[2018-11-28] MEDS: Docusate Oral Soln 100 MG/10 ML UDC PO SCH ×2 (10:40→21:11)
[2018-11-28] MEDS: tiZANidine 4 MG TABLET PO SCH ×4 (10:41→21:12)
--- NOTE | 2018-11-28 18:52 | Internal Med Progress Note ---
Date of Encounter: 11/28/18 Time of Encounter: 17:40 - Subjective Interval history: - Assessment and plan (1) CVA (cerebral vascular accident) Current Visit: Yes Status: Acute Assessment and plan: Continue PT, OT and ST. Will follow progress. No new neurological deficits at this time. Follow up with neuro as scheduled. Family meeting on for discharge planning Qualifiers: CVA mechanism: embolism Precerebral and cerebral artery: middle cerebral artery Laterality of affected vessel: right Qualified Code(s): I63.411 - Cerebral infarction due to embolism of right middle cerebral artery (2) HTN (hypertension) Current Visit: Yes Status: Chronic Qualifiers: Hypertension type: essential hypertension Qualified Code(s): I10 - Essential (primary) hypertension (3) Insomnia Current Visit: Yes Status: Acute Assessment and plan: \Improved with increasing melatonin. Qualifiers: Insomnia type: unspecified Qualified Code(s): G47.00 - Insomnia, unspecified - Time Spent With Patient less than 15 minutes - Subjective Interval history: Patient participating well with therapy. Not making much progress over the past few days. Family meeting scheduled for one o'clock on . No new neurological deficits. denies any pain, fever, chills, NVD. denies SOB or chest pain. pocketing food in left, requires cueing to clear. - EXAM General appearance: Present: cooperative, A&O X 3, pleasant, no acute distress, answers questions appropriately Exam: Left-sided neglect, left-sided hemiplegia, left facial droop. Dysarthria - Head Head exam: Present: atraumatic, normocephalic - Eye Eye exam: Present: PERRL, conjuntiva pink, sclera anicteric Pupils: Present: PERRL - Neck Neck exam general surgery: Present: supple, trachea midline. Absent: lymphadenopathy - Respiratory Respiratory exam: Present: CTAB. Absent: accessory muscle use, rales, rhonchi, wheezes - Cardiovascular Cardiovascular exam: Present: irregular rhythm, +S1, +S2. Absent: diastolic murmur, gallop, rubs, systolic murmur - GI/Abdominal GI/Abdominal exam: Present: normal bowel sounds, soft, no peritoneal signs. Absent: distended, tenderness - Extremities Exam Extremities exam: Present: warm, radial pulses palpable and symmetrical. Absent: calf tenderness, cyanotic, pedal edema Additional comments: Left-sided hemiplegia - Neurological Exam Neurological exam: Present: CN II-XII intact, oriented X3, no focal deficits. Absent: pronater drift, facial droop, speech deficit - Skin Skin exam: Present: dry, intact - Constitutional Vitals: Temp Pulse Resp BP Pulse Ox 98.2 F 85 16 104/63 94 11/28/18 06:59 11/28/18 06:59 11/28/18 06:59 11/28/18 06:59 11/28/18 06:59 General appearance: Present: cooperative, A&O X 3, pleasant, no acute distress, answers questions appropriately Internal Medicine: Result - Labs CBC & Chem 7: 11/26/18 06:00 11/26/18 06:00 - Stroke Is the patient on any antithrombotics?: Yes Contraindication Antithromb by Day Two: Drug Allergy to All Antithromobic Medications Consult Discharge Plan - Plan Referrals: Caesar Marquez MD [Primary Care Provider] -
[2018-11-28] MEDS: Melatonin 3 MG TABLET PO PRN (21:13)
[2018-11-29] MEDS: *HR* Enoxaparin 40 MG/0.4 ML SYRINGE SQ SCH (04:17)
[2018-11-29 06:15] LABS: Basophils % 0.5 %; Eosinophils # 0.2 K/mcL (0.0-0.6); Eosinophils % 2.3 %; Hematocrit 38.1 % (35.3-44.9); Hemoglobin 12.3 g/dL (11.5-15.4); Immature Granulocytes % 0.3 % (0-4); Lymphocytes # 2.5 K/mcL (0.6-4.6); Lymphocytes % 28.6 %; Mean Corpuscular HGB Conc 32.3 g/dL (31.6-35.5); Mean Corpuscular Hemoglobin 26.9 pg (28.0-33.3); Mean Corpuscular Volume 83.4 fL (83.0-100.0); Mean Platelet Volume 9.7 fL (9.4-12.4); Monocytes # 0.6 K/mcL (0.0-1.3); Monocytes % 7.3 %; Neutrophils # 5.4 K/mcL (1.6-8.9); Platelet Count 279 K/mcL (140-400); Red Blood Count 4.57 M/mcL (3.82-4.97); White Blood Count 8.8 K/mcL (4.3-11.1)
[2018-11-29 06:49] LABS: BUN/Creatinine Ratio 30 (6-26); Blood Urea Nitrogen 21 mg/dL (8-23); Calcium 9.1 mg/dL (8.6-10.3); Carbon Dioxide 25 mEq/L (23-29); Chloride 106 mEq/L (98-107); Glucose 103 mg/dL (70-105); Osmolality,Calculated 287 (280-300); Potassium 4.1 mEq/L (3.5-5.1); Sodium 137 mEq/L (136-145); eGFR For African Americans > 60 (> 60); eGFR For Non-African Americans > 60 (> 60)
[2018-11-29] MEDS: Potassium Chloride Elixir 20 MEQ/15 ML UDC PO SCH (10:10)
[2018-11-29] MEDS: tiZANidine 4 MG TABLET PO SCH ×4 (10:10→19:45)
[2018-11-29] MEDS: Nicotine 21 MG PATCH.TD24 TD SCH (10:11)
[2018-11-29] MEDS: Aspirin 81 MG TAB.CHEW PO SCH (10:11)
[2018-11-29] MEDS: Sennosides 8.6 MG TABLET PO SCH (10:11)
[2018-11-29] MEDS: Docusate Oral Soln 100 MG/10 ML UDC PO SCH ×2 (10:13→19:46)
--- NOTE | 2018-11-29 13:30 | Internal Med Progress Note ---
Date of Encounter: 11/29/18 Time of Encounter: 13:28 - Assessment and plan (1) CVA (cerebral vascular accident) Current Visit: Yes Status: Acute Assessment and plan: Continue PT, OT and ST. Will follow progress. No new neurological deficits at this time. Follow up with neuro as scheduled. Family meeting on for discharge planning Qualifiers: CVA mechanism: embolism Precerebral and cerebral artery: middle cerebral artery Laterality of affected vessel: right Qualified Code(s): I63.411 - Cerebral infarction due to embolism of right middle cerebral artery (2) HTN (hypertension) Current Visit: Yes Status: Chronic Assessment and plan: Controlled with current medication. Monitor blood pressure. Qualifiers: Hypertension type: essential hypertension Qualified Code(s): I10 - Essential (primary) hypertension - Time Spent With Patient less than 15 minutes - Subjective Interval history: Patient participating well with therapy. Not making much progress over the past few days. Family meeting today to discuss discharge plan. No new neurological deficits. denies any pain, fever, chills, NVD. denies SOB or chest pain. pocketing food in left, requires cueing to clear. - Constitutional Vitals: Temp Pulse Resp BP Pulse Ox 98.3 F 70 14 128/80 96 11/29/18 07:09 11/29/18 07:09 11/29/18 07:09 11/29/18 07:09 11/29/18 07:09 General appearance: Present: cooperative, A&O X 3, pleasant, no acute distress, answers questions appropriately Exam: left facial droop, left visual field cut. - Head Head exam: Present: atraumatic, normocephalic - Eye Eye exam: Present: PERRL, conjuntiva pink, sclera anicteric Pupils: Present: PERRL - Neck Neck exam general surgery: Present: supple, trachea midline. Absent: lymphadenopathy - Respiratory Respiratory exam: Present: CTAB. Absent: accessory muscle use, rales, rhonchi, wheezes - Cardiovascular Cardiovascular exam: Present: RRR, +S1, +S2. Absent: diastolic murmur, gallop, rubs, systolic murmur - GI/Abdominal GI/Abdominal exam: Present: normal bowel sounds, soft, no peritoneal signs. Absent: distended, tenderness - Extremities Exam Extremities exam: Present: warm, radial pulses palpable and symmetrical. Absent: calf tenderness, cyanotic, pedal edema Additional comments: left hemiplegia - Neurological Exam Neurological exam: Present: CN II-XII intact, oriented X3, no focal deficits. Absent: pronater drift, facial droop, speech deficit - Skin Skin exam: Present: dry, intact Internal Medicine: Result - Labs CBC & Chem 7: 11/29/18 05:30 11/29/18 05:30 Labs: Short CBC 11/29/18 Range/Units 05:30 WBC 8.8 (4.3-11.1) K/mcL Hgb 12.3 (11.5-15.4) g/dL Hct 38.1 (35.3-44.9) % Plt Count 279 (140-400) K/mcL Neutrophils # 5.4 (1.6-8.9) K/mcL BMP 11/29/18 05:30 Sodium 137 Potassium 4.1 Chloride 106 Carbon Dioxide 25 BUN 21 Creatinine 0.71 Glucose 103 Calcium 9.1 - Stroke Is the patient on any antithrombotics?: Yes Are there any contradictions to antithrombotics?: No Contraindication Antithromb by Day Two: Drug Allergy to All Antithromobic Medications Consult Discharge Plan - Plan Referrals: Caesar Marquez MD [Primary Care Provider] -
[2018-11-29] MEDS: Melatonin 3 MG TABLET PO PRN (19:45)
[2018-11-29] MEDS: Acetaminophen 325 MG TABLET PO PRN (19:45)
[2018-11-30] MEDS: *HR* Enoxaparin 40 MG/0.4 ML SYRINGE SQ SCH (04:25)
[2018-11-30] MEDS: Potassium Chloride Elixir 20 MEQ/15 ML UDC PO SCH (10:42)
[2018-11-30] MEDS: tiZANidine 4 MG TABLET PO SCH ×4 (10:42→20:40)
[2018-11-30] MEDS: Nicotine 21 MG PATCH.TD24 TD SCH (10:42)
[2018-11-30] MEDS: Sennosides 8.6 MG TABLET PO SCH (10:42)
[2018-11-30] MEDS: Docusate Oral Soln 100 MG/10 ML UDC PO SCH ×3 (10:42→20:38)
[2018-11-30] MEDS: Aspirin 81 MG TAB.CHEW PO SCH (10:42)
--- NOTE | 2018-11-30 12:08 | Internal Med Progress Note ---
Date of Encounter: 11/30/18 Time of Encounter: 12:06 - Assessment and plan (1) CVA (cerebral vascular accident) Current Visit: Yes Status: Acute Assessment and plan: No acute issues. Patient continues with left hemiplegia effect with left upper extremity showing continue contracture. Continues with right facial droop and slight expressive aphasia. Patient participated in physical therapy and reportedly has been progressing well. We will continue with current plan of care. Qualifiers: CVA mechanism: embolism Precerebral and cerebral artery: middle cerebral artery Laterality of affected vessel: right Qualified Code(s): I63.411 - Cerebral infarction due to embolism of right middle cerebral artery (2) COPD (chronic obstructive pulmonary disease) Current Visit: No Status: Chronic Assessment and plan: No acute issues. Lungs are clear throughout. Patient noted to have wet cough but no sputum has been received. We will continue with current bronchodilators and medications. Qualifiers: COPD type: COPD with acute lower respiratory infection Qualified Code(s): J44.0 - Chronic obstructive pulmonary disease with acute lower respiratory infection (3) Insomnia Current Visit: Yes Status: Acute Assessment and plan: Patient states improvement of sleep after being started on on Elavil and Seroquel at bedtime. Patient also takes melatonin at bedtime. We will continue to monitor effects. Qualifiers: Insomnia type: unspecified Qualified Code(s): G47.00 - Insomnia, unspecified - Time Spent With Patient less than 15 minutes - Subjective Interval history: Patient appears relaxed and denies any dyspnea or discomforts. No acute issues reported per nursing. Patient has had an improvement of sleep at night. - Constitutional Vitals: Temp Pulse Resp BP Pulse Ox 97.9 F 95 16 128/84 96 11/30/18 07:33 11/30/18 07:33 11/30/18 07:33 11/30/18 07:33 11/30/18 07:33 General appearance: Present: cooperative, A&O X 3, pleasant, no acute distress, answers questions appropriately - Head Head exam: Present: atraumatic, normocephalic - Eye Eye exam: Present: PERRL, conjuntiva pink, sclera anicteric Pupils: Present: PERRL - Neck Neck exam general surgery: Present: supple, trachea midline. Absent: lymphade nopathy - Respiratory Respiratory exam: Present: CTAB. Absent: accessory muscle use, rales, rhonchi, wheezes - Cardiovascular Cardiovascular exam: Present: RRR, +S1, +S2. Absent: diastolic murmur, gallop, rubs, systolic murmur - GI/Abdominal GI/Abdominal exam: Present: normal bowel sounds, soft, no peritoneal signs. Absent: distended, tenderness - Extremities Exam Extremities exam: Present: warm, radial pulses palpable and symmetrical. Absent: calf tenderness, cyanotic, pedal edema - Neurological Exam Neurological exam: Present: CN II-XII intact, oriented X3, facial droop, speech deficit. Absent: pronater drift Additional comments: Patient noted to have slight right facial droop and continues with slight dysarthria. Continues with left hemiplegia. Right extremities at 5/5 - Skin Skin exam: Present: dry, intact Internal Medicine: Result - Labs CBC & Chem 7: 11/29/18 05:30 11/29/18 05:30 - Stroke Is the patient on any antithrombotics?: Yes Are there any contradictions to antithrombotics?: No Contraindication Antithromb by Day Two: Drug Allergy to All Antithromobic Medications Consult Discharge Plan - Plan Referrals: Caesar Marquez MD [Primary Care Provider] -
[2018-11-30] MEDS: Melatonin 3 MG TABLET PO PRN (20:40)
[2018-12-01] MEDS: *HR* Enoxaparin 40 MG/0.4 ML SYRINGE SQ SCH (04:43)
[2018-12-01] MEDS: Nicotine 21 MG PATCH.TD24 TD SCH (11:43)
[2018-12-01] MEDS: Acetaminophen 325 MG TABLET PO PRN ×2 (11:43→20:39)
[2018-12-01] MEDS: Potassium Chloride Elixir 20 MEQ/15 ML UDC PO SCH (11:43)
[2018-12-01] MEDS: tiZANidine 4 MG TABLET PO SCH ×4 (11:44→20:38)
[2018-12-01] MEDS: Aspirin 81 MG TAB.CHEW PO SCH (11:44)
[2018-12-01] MEDS: Docusate Oral Soln 100 MG/10 ML UDC PO SCH ×2 (11:45→20:37)
[2018-12-01] MEDS: Sennosides 8.6 MG TABLET PO SCH (11:45)
--- NOTE | 2018-12-01 15:41 | Rehab Psychology Progress Note ---
Date of Encounter: 12/01/18 Time of Encounter: 10:30 Subjective - Patient Report Patient Report: Stated mood "OK". Stated no urges to drink. Denies SI. Discussed group of friends that are "bad influence" and need to stay away from them upon DC. - Symptoms Symptoms: Looked to left side and more aware of situation and weaknesses. Most concerned with getting WC in yard due to unevenness. Objective - WHODAS Functional Impairment Concentration, Problem-solving, Communication: Moderate Social Functioning: Moderate - Comments Functional Status Comments: Dysarthria continues to be an issue in conversation. Pleased with progress to date. - Mental Status Mental Status Changes: Noted reversal of numbers in both age and year when questioned. OX3 except yr/date. 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
--- NOTE | 2018-12-01 15:58 | Internal Med Progress Note ---
Date of Encounter: 12/01/18 Time of Encounter: 15:57 - Assessment and plan (1) CVA (cerebral vascular accident) Current Visit: Yes Status: Acute Assessment and plan: No acute issues. Patient continues with left hemiplegia effect with left upper extremity showing continue contracture. Continues with right facial droop and slight expressive aphasia. Patient participated in physical therapy and reportedly has been progressing well. We will continue with current plan of care. Qualifiers: CVA mechanism: embolism Precerebral and cerebral artery: middle cerebral artery Laterality of affected vessel: right Qualified Code(s): I63.411 - Cerebral infarction due to embolism of right middle cerebral artery (2) COPD (chronic obstructive pulmonary disease) Current Visit: No Status: Chronic Assessment and plan: No acute issues. Lungs are clear throughout. Patient noted to have wet cough but no sputum has been received. We will continue with current bronchodilators and medications. Qualifiers: COPD type: COPD with acute lower respiratory infection Qualified Code(s): J44.0 - Chronic obstructive pulmonary disease with acute lower respiratory infection (3) Insomnia Current Visit: Yes Status: Acute Assessment and plan: Patient states improvement of sleep after being started on on Elavil and Seroquel at bedtime. Patient also takes melatonin at bedtime. We will continue to monitor effects. Qualifiers: Insomnia type: unspecified Qualified Code(s): G47.00 - Insomnia, unspecified - Time Spent With Patient less than 15 minutes - Subjective Interval history: Patient appears relaxed and denies any dyspnea or discomforts. No acute issues reported per nursing. Patient has had an improvement of sleep at night. - Constitutional Vitals: Temp Pulse Resp BP Pulse Ox 98.0 F 92 15 114/74 94 12/01/18 07:33 12/01/18 07:33 12/01/18 07:33 12/01/18 07:33 12/01/18 07:33 General appearance: Present: cooperative, A&O X 3, pleasant, no acute distress, answers questions appropriately - Head Head exam: Present: atraumatic, normocephalic - Eye Eye exam: Present: PERRL, conjuntiva pink, sclera anicteric Pupils: Present: PERRL - Neck Neck exam general surgery: Present: supple, trachea midline. Absent: lymphade nopathy - Respiratory Respiratory exam: Present: CTAB. Absent: accessory muscle use, rales, rhonchi, wheezes - Cardiovascular Cardiovascular exam: Present: RRR, +S1, +S2. Absent: diastolic murmur, gallop, rubs, systolic murmur - GI/Abdominal GI/Abdominal exam: Present: normal bowel sounds, soft, no peritoneal signs. Absent: distended, tenderness - Extremities Exam Extremities exam: Present: warm, radial pulses palpable and symmetrical. Absent: calf tenderness, cyanotic, pedal edema - Neurological Exam Neurological exam: Present: CN II-XII intact, oriented X3, facial droop, speech deficit. Absent: pronater drift Additional comments: Patient continues to have right facial droop with dysarthria. Left hemiplegia. Right extremity muscle strength at 5/5 - Skin Skin exam: Present: dry, intact Internal Medicine: Result - Labs CBC & Chem 7: 11/29/18 05:30 11/29/18 05:30 - Stroke Is the patient on any antithrombotics?: Yes Are there any contradictions to antithrombotics?: No Consult Discharge Plan - Plan Referrals: Caesar Marquez MD [Primary Care Provider] -
[2018-12-01] MEDS: Melatonin 3 MG TABLET PO PRN (20:38)
[2018-12-02] MEDS: *HR* Enoxaparin 40 MG/0.4 ML SYRINGE SQ SCH (04:55)
[2018-12-02] MEDS: Sennosides 8.6 MG TABLET PO SCH (10:03)
[2018-12-02] MEDS: Potassium Chloride Elixir 20 MEQ/15 ML UDC PO SCH (10:03)
[2018-12-02] MEDS: Docusate Oral Soln 100 MG/10 ML UDC PO SCH ×2 (10:03→21:28)
[2018-12-02] MEDS: tiZANidine 4 MG TABLET PO SCH ×4 (10:03→21:24)
[2018-12-02] MEDS: Nicotine 21 MG PATCH.TD24 TD SCH (10:03)
[2018-12-02] MEDS: Acetaminophen 325 MG TABLET PO PRN (10:04)
[2018-12-02] MEDS: Aspirin 81 MG TAB.CHEW PO SCH (10:04)
--- NOTE | 2018-12-02 10:12 | Internal Med Progress Note ---
Date of Encounter: 12/02/18 Time of Encounter: 10:10 - Assessment and plan (1) CVA (cerebral vascular accident) Current Visit: Yes Status: Acute Assessment and plan: No acute issues. Patient continues with left hemiplegia effect with left upper extremity showing continue contracture. Continues with right facial droop and slight expressive aphasia. Patient participated in physical therapy and reportedly has been progressing well. We will continue with current plan of care. Patient being prepared for possible discharge next week. Qualifiers: CVA mechanism: embolism Precerebral and cerebral artery: middle cerebral artery Laterality of affected vessel: right Qualified Code(s): I63.411 - Cerebral infarction due to embolism of right middle cerebral artery (2) COPD (chronic obstructive pulmonary disease) Current Visit: No Status: Chronic Assessment and plan: No acute issues. Lungs are clear throughout. Patient noted to have wet cough but no sputum has been received. We will continue with current bronchodilators and medications. Qualifiers: COPD type: COPD with acute lower respiratory infection Qualified Code(s): J44.0 - Chronic obstructive pulmonary disease with acute lower respiratory infection (3) Insomnia Current Visit: Yes Status: Acute Assessment and plan: Patient states improvement of sleep after being started on on Elavil and Seroquel at bedtime. Patient also takes melatonin at bedtime. We will continue to monitor effects. Qualifiers: Insomnia type: unspecified Qualified Code(s): G47.00 - Insomnia, unspecified - Time Spent With Patient less than 15 minutes - Subjective Interval history: Patient appears relaxed and denies any dyspnea or discomforts. No acute issues reported per nursing. Patient has had an improvement of sleep at night. - Constitutional Vitals: Temp Pulse Resp BP Pulse Ox 98.3 F 91 16 151/69 94 12/02/18 08:40 12/02/18 08:40 12/02/18 08:40 12/02/18 08:40 12/02/18 08:40 General appearance: Present: cooperative, A&O X 3, pleasant, no acute distress, answers questions appropriately - Head Head exam: Present: atraumatic, normocephalic - Eye Eye exam: Present: PERRL, conjuntiva pink, sclera anicteric Pupils: Present: PERRL - Neck Neck exam general surgery: Present: supple, trachea midline. Absent: lymphadenopathy - Respiratory Respiratory exam: Present: CTAB. Absent: accessory muscle use, rales, rhonchi, wheezes - Cardiovascular Cardiovascular exam: Present: RRR, +S1, +S2. Absent: diastolic murmur, gallop, rubs, systolic murmur - GI/Abdominal GI/Abdominal exam: Present: normal bowel sounds, soft, no peritoneal signs. Absent: distended, tenderness - Extremities Exam Extremities exam: Present: warm, radial pulses palpable and symmetrical. Absent: calf tenderness, cyanotic, pedal edema - Neurological Exam Neurological exam: Present: CN II-XII intact, oriented X3, no focal deficits, facial droop, speech deficit. Absent: pronater drift Additional comments: Patient continues with left facial droop and slight dysarthria. Patient continues with left lateral visual cut. Left hemiplegic. Right extremity is 5/5 - Skin Skin exam: Present: dry, intact Internal Medicine: Result - Labs CBC & Chem 7: 11/29/18 05:30 11/29/18 05:30 - Stroke Is the patient on any antithrombotics?: Yes Are there any contradictions to antithrombotics?: No Consult Discharge Plan - Plan Referrals: Caesar Marquez MD [Primary Care Provider] -
[2018-12-03] MEDS: *HR* Enoxaparin 40 MG/0.4 ML SYRINGE SQ SCH (05:41)
[2018-12-03] MEDS: Docusate Oral Soln 100 MG/10 ML UDC PO SCH ×2 (08:50→21:05)
[2018-12-03] MEDS: tiZANidine 4 MG TABLET PO SCH ×4 (08:50→21:05)
[2018-12-03] MEDS: Sennosides 8.6 MG TABLET PO SCH (08:50)
[2018-12-03] MEDS: Potassium Chloride Elixir 20 MEQ/15 ML UDC PO SCH (08:50)
[2018-12-03] MEDS: Nicotine 21 MG PATCH.TD24 TD SCH (08:51)
[2018-12-03] MEDS: Aspirin 81 MG TAB.CHEW PO SCH (08:51)
--- NOTE | 2018-12-03 12:47 | Internal Med Progress Note ---
Date of Encounter: 12/03/18 Time of Encounter: 12:45 - Assessment and plan (1) CVA (cerebral vascular accident) Current Visit: Yes Status: Acute Assessment and plan: No acute issues. Patient continues with left hemiplegia effect with left upper extremity showing continue contracture. Continues with right facial droop and slight expressive aphasia. Patient participated in physical therapy and reportedly has been progressing well. We will continue with current plan of care. Patient being prepared for possible discharge next week. Qualifiers: CVA mechanism: embolism Precerebral and cerebral artery: middle cerebral artery Laterality of affected vessel: right Qualified Code(s): I63.411 - Cerebral infarction due to embolism of right middle cerebral artery (2) COPD (chronic obstructive pulmonary disease) Current Visit: No Status: Chronic Assessment and plan: No acute issues. Lungs are clear throughout. Patient noted to have wet cough but no sputum has been received. We will continue with current bronchodilators and medications. Qualifiers: COPD type: COPD with acute lower respiratory infection Qualified Code(s): J44.0 - Chronic obstructive pulmonary disease with acute lower respiratory infection (3) Insomnia Current Visit: Yes Status: Acute Assessment and plan: Patient states improvement of sleep after being started on on Elavil and Seroquel at bedtime. Patient also takes melatonin at bedtime. We will continue to monitor effects. Qualifiers: Insomnia type: unspecified Qualified Code(s): G47.00 - Insomnia, unspecified - Time Spent With Patient less than 15 minutes - Subjective Interval history: Patient appears relaxed and denies any dyspnea or discomforts. No acute issues reported per nursing. Patient has had an improvement of sleep at night. - Constitutional Vitals: Temp Pulse Resp BP Pulse Ox 98.1 F 97 16 122/79 95 12/03/18 07:00 12/03/18 07:00 12/03/18 07:00 12/03/18 07:00 12/03/18 07:00 General appearance: Present: cooperative, A&O X 3, pleasant, no acute distress, answers questions appropriately - Head Head exam: Present: atraumatic, normocephalic - Eye Eye exam: Present: PERRL, conjuntiva pink, sclera anicteric Pupils: Present: PERRL - Neck Neck exam general surgery: Present: supple, trachea midline. Absent: lymphadenopathy - Respiratory Respiratory exam: Present: CTAB. Absent: accessory muscle use, rales, rhonchi, wheezes - Cardiovascular Cardiovascular exam: Present: RRR, +S1, +S2. Absent: diastolic murmur, gallop, rubs, systolic murmur - GI/Abdominal GI/Abdominal exam: Present: normal bowel sounds, soft, no peritoneal signs. Absent: distended, tenderness - Extremities Exam Extremities exam: Present: warm, radial pulses palpable and symmetrical. Absent: calf tenderness, cyanotic, pedal edema - Neurological Exam Neurological exam: Present: CN II-XII intact, oriented X3. Absent: pronater drift, facial droop, speech deficit Additional comments: Patient continues with left hemiplegia. Right extremities at 5/[address] rength. - Skin Skin exam: Present: dry, intact Internal Medicine: Result - Labs CBC & Chem 7: 11/29/18 05:30 11/29/18 05:30 - Stroke Is the patient on any antithrombotics?: Yes Are there any contradictions to antithrombotics?: No Consult Discharge Plan - Plan Referrals: Caesar Marquez MD [Primary Care Provider] -
[2018-12-04] MEDS: *HR* Enoxaparin 40 MG/0.4 ML SYRINGE SQ SCH (05:43)
[2018-12-04] MEDS: Nicotine 21 MG PATCH.TD24 TD SCH (08:52)
[2018-12-04] MEDS: Sennosides 8.6 MG TABLET PO SCH (08:52)
[2018-12-04] MEDS: tiZANidine 4 MG TABLET PO SCH ×4 (08:52→20:06)
[2018-12-04] MEDS: Potassium Chloride Elixir 20 MEQ/15 ML UDC PO SCH (08:52)
[2018-12-04] MEDS: Docusate Oral Soln 100 MG/10 ML UDC PO SCH ×2 (08:52→20:03)
[2018-12-04] MEDS: Aspirin 81 MG TAB.CHEW PO SCH (08:52)
[2018-12-04] MEDS ORDERED: SODIUM CHLORIDE/NAHCO3/KCL/PEG 4,000 ML SOLN.RECON PO ONE (19:11)
--- NOTE | 2018-12-04 19:13 | Internal Med Progress Note ---
Date of Encounter: 12/05/18 Time of Encounter: 17:40 - Subjective Interval history: - Assessment and plan (1) CVA (cerebral vascular accident) Current Visit: Yes Status: Acute Assessment and plan: Continue PT, OT and ST. monitor progress No new neurological deficits at this time. Will Follow up with neuro as scheduled. Qualifiers: CVA mechanism: embolism Precerebral and cerebral artery: middle cerebral artery Laterality of affected vessel: right Qualified Code(s): I63.411 - Cerebral infarction due to embolism of right middle cerebral artery (2) HTN (hypertension) Current Visit: Yes Status: Chronic Qualifiers: Hypertension type: essential hypertension Qualified Code(s): I10 - Essential (primary) hypertension (3) Insomnia Current Visit: Yes Status: Acute Assessment and plan: \Improved with melatonin. Qualifiers: Insomnia type: unspecified Qualified Code(s): G47.00 - Insomnia, unspecified - Time Spent With Patient less than 15 minutes - Subjective Interval history: Patient participating but very slow progress . No acute changes. No new neurological deficits. denies any pain, fever, chills, NVD. requires cueing at meals and other ADL - EXAM General appearance: Present: cooperative, A&O X 3, pleasant, no acute distress, answers questions appropriately Exam: Left-sided neglect, left-sided hemiplegia, left facial droop. Dysarthria stable - Head Head exam: Present: atraumatic, normocephalic - Eye Eye exam: Present: PERRL, conjuntiva pink, sclera anicteric Pupils: Present: PERRL - Neck Neck exam general surgery: Present: supple, trachea midline. Absent: lymphadenopathy - Respiratory Respiratory exam: Present: CTAB. Absent: accessory muscle use, rales, rhonchi, wheezes - Cardiovascular Cardiovascular exam: Present: irregular rhythm, +S1, +S2. Absent: diastolic murmur, gallop, rubs, systolic murmur - GI/Abdominal GI/Abdominal exam: Present: normal bowel sounds, soft, no peritoneal signs. Absent: distended, tenderness - Extremities Exam Extremities exam: Present: warm, radial pulses palpable and symmetrical. Absent: calf tenderness, cyanotic, pedal edema Additional comments: Left-sided hemiplegia - Neurological Exam Neurological exam: Present: CN II-XII intact, oriented X3, no focal deficits. Absent: pronater drift, facial droop, speech deficit - Skin Skin exam: Present: dry, intact - Constitutional Vitals: Temp Pulse Resp BP Pulse Ox 97.9 F 80 16 128/78 95 12/04/18 08:01 12/04/18 08:01 12/04/18 08:01 12/04/18 08:01 12/04/18 08:01 General appearance: Present: cooperative, A&O X 3, pleasant, no acute distress, answers questions appropriately Internal Medicine: Result - Labs CBC & Chem 7: 11/29/18 05:30 11/29/18 05:30 - Stroke Is the patient on any antithrombotics?: No Are there any contradictions to antithrombotics?: Yes Contraindication Antithromb by Day Two: Drug Allergy to All Antithromobic Medications Consult Discharge Plan - Plan Referrals: Caesar Marquez MD [Primary Care Provider] -
[2018-12-04] MEDS: Melatonin 3 MG TABLET PO PRN (20:06)
[2018-12-05] MEDS: *HR* Enoxaparin 40 MG/0.4 ML SYRINGE SQ SCH (04:49)
[2018-12-05] MEDS: Sennosides 8.6 MG TABLET PO SCH (09:17)
[2018-12-05] MEDS: Aspirin 81 MG TAB.CHEW PO SCH (09:17)
[2018-12-05] MEDS: tiZANidine 4 MG TABLET PO SCH ×4 (09:17→21:00)
[2018-12-05] MEDS: Potassium Chloride Elixir 20 MEQ/15 ML UDC PO SCH (09:20)
[2018-12-05] MEDS: Docusate Oral Soln 100 MG/10 ML UDC PO SCH ×2 (09:20→20:59)
[2018-12-05] MEDS: Nicotine 21 MG PATCH.TD24 TD SCH (09:21)
[2018-12-05] MEDS: Acetaminophen 325 MG TABLET PO PRN ×2 (14:19→21:01)
--- NOTE | 2018-12-05 17:20 | Internal Med Progress Note ---
Date of Encounter: 12/05/18 Time of Encounter: 16:10 - Subjective Interval history: - Assessment and plan (1) CVA (cerebral vascular accident) Current Visit: Yes Status: Acute Assessment and plan: Continue PT, OT and ST. monitor progress No new neurological deficits at this time. Will Follow up with neuro as scheduled. Qualifiers: CVA mechanism: embolism Precerebral and cerebral artery: middle cerebral artery Laterality of affected vessel: right Qualified Code(s): I63.411 - Cerebral infarction due to embolism of right middle cerebral artery (2) HTN (hypertension) Current Visit: Yes Status: Chronic Qualifiers: Hypertension type: essential hypertension Qualified Code(s): I10 - Essential (primary) hypertension (3) Insomnia Current Visit: Yes Status: Acute Assessment and plan: \Improved with melatonin. Qualifiers: Insomnia type: unspecified Qualified Code(s): G47.00 - Insomnia, unspecified - Time Spent With Patient less than 15 minutes - Subjective Interval history: Patient participating but very slow progress . No acute changes. No new neurological deficits. denies any pain, fever, chills, NVD. requires cueing at meals and other ADL - EXAM General appearance: Present: cooperative, A&O X 3, pleasant, no acute distress, answers questions appropriately Exam: Left-sided neglect, left-sided hemiplegia, left facial droop. Dysarthria stable - Head Head exam: Present: atraumatic, normocephalic - Eye Eye exam: Present: PERRL, conjuntiva pink, sclera anicteric Pupils: Present: PERRL - Neck Neck exam general surgery: Present: supple, trachea midline. Absent: lymphadenopathy - Respiratory Respiratory exam: Present: CTAB. Absent: accessory muscle use, rales, rhonchi, wheezes - Cardiovascular Cardiovascular exam: Present: irregular rhythm, +S1, +S2. Absent: diastolic murmur, gallop, rubs, systolic murmur - GI/Abdominal GI/Abdominal exam: Present: normal bowel sounds, soft, no peritoneal signs. Absent: distended, tenderness - Extremities Exam Extremities exam: Present: warm, radial pulses palpable and symmetrical. Absent: calf tenderness, cyanotic, pedal edema Additional comments: Left-sided hemiplegia - Neurological Exam Neurological exam: Present: CN II-XII intact, oriented X3, no focal deficits. Absent: pronater drift, facial droop, speech deficit - Skin Skin exam: Present: dry, intact - Constitutional Vitals: Temp Pulse Resp BP Pulse Ox 97.7 F 89 18 156/90 99 12/05/18 07:33 12/05/18 07:33 12/05/18 07:33 12/05/18 07:33 12/05/18 07:33 General appearance: Present: cooperative, A&O X 3, pleasant, no acute distress, answers questions appropriately Internal Medicine: Result - Labs CBC & Chem 7: 11/29/18 05:30 11/29/18 05:30 - Stroke Is the patient on any antithrombotics?: No Are there any contradictions to antithrombotics?: Yes Contraindication Antithromb by Day Two: Drug Allergy to All Antithromobic Medications Consult Discharge Plan - Plan Referrals: Caesar Marquez MD [Primary Care Provider] -
[2018-12-05] MEDS: Melatonin 3 MG TABLET PO PRN (21:01)
[2018-12-06] MEDS: *HR* Enoxaparin 40 MG/0.4 ML SYRINGE SQ SCH (05:22)
[2018-12-06 05:43] LABS: Basophils % 0.5 %; Eosinophils # 0.3 K/mcL (0.0-0.6); Eosinophils % 3.6 %; Hematocrit 35.1 % (35.3-44.9); Hemoglobin 11.2 g/dL (11.5-15.4); Immature Granulocytes % 0.5 % (0-4); Lymphocytes # 2.6 K/mcL (0.6-4.6); Lymphocytes % 30.6 %; Mean Corpuscular HGB Conc 31.9 g/dL (31.6-35.5); Mean Corpuscular Hemoglobin 26.8 pg (28.0-33.3); Mean Platelet Volume 9.6 fL (9.4-12.4); Monocytes # 0.8 K/mcL (0.0-1.3); Monocytes % 8.9 %; Neutrophils # 4.7 K/mcL (1.6-8.9); Platelet Count 206 K/mcL (140-400); Red Blood Count 4.18 M/mcL (3.82-4.97); Red Cell Distribution Width 13.3 % (11.5-14.5); Segmented Neutrophils % 55.9 %; White Blood Count 8.4 K/mcL (4.3-11.1)
[2018-12-06 06:17] LABS: BUN/Creatinine Ratio 27 (6-26); Blood Urea Nitrogen 19 mg/dL (8-23); Calcium 8.9 mg/dL (8.6-10.3); Carbon Dioxide 27 mEq/L (23-29); Chloride 108 mEq/L (98-107); Glucose 107 mg/dL (70-105); Osmolality,Calculated 291 (280-300); Potassium 4.3 mEq/L (3.5-5.1); Sodium 139 mEq/L (136-145); eGFR For African Americans > 60 (> 60); eGFR For Non-African Americans > 60 (> 60)
--- NOTE | 2018-12-06 09:05 | Internal Med Progress Note ---
Date of Encounter: 12/06/18 Time of Encounter: 08:57 - Assessment and plan (1) CVA (cerebral vascular accident) Current Visit: Yes Status: Acute Assessment and plan: Patient is doing well. She is medically stable and plans on discharge tomorrow. Preparations are being made. Patient requires a hospital bed for special positioning to alleviate pain, progression of symptoms, prevent traction bed sores, and positioning of body and weighs not possible in regular bed. Qualifiers: CVA mechanism: embolism Precerebral and cerebral artery: middle cerebral artery Laterality of affected vessel: right Qualified Code(s): I63.411 - Cerebral infarction due to embolism of right middle cerebral artery (2) COPD (chronic obstructive pulmonary disease) Current Visit: No Status: Chronic Assessment and plan: Clinically stable. Qualifiers: COPD type: COPD with acute lower respiratory infection Qualified Code(s): J44.0 - Chronic obstructive pulmonary disease with acute lower respiratory infection (3) HTN (hypertension) Current Visit: Yes Status: Chronic Assessment and plan: Stable on current regimen. Qualifiers: Hypertension type: essential hypertension Qualified Code(s): I10 - Essential (primary) hypertension (4) Insomnia Current Visit: Yes Status: Acute Qualifiers: Insomnia type: unspecified Qualified Code(s): G47.00 - Insomnia, unspecified (5) Tobacco abuse Current Visit: Yes Status: Acute (6) Constipation Current Visit: Yes Status: Acute Assessment and plan: Apparently resolved. Will continue current regimen. Qualifiers: Constipation type: slow transit constipation Qualified Code(s): K59.01 - Slow transit constipation - Subjective Interval history: Patient is without complaint. She is pleased to be going home tomorrow. She denies bowel or bladder issues. She has no function of her left side but states that she knows will improve with time. She still has slurred speech. Discussed care with other providers and/or nursing. Patient has no complaint of chest discomfort, dyspnea, orthopnea, palpitations, nausea or vomiting, constipation or diarrhea, other changes in bowel habits, difficulty with urination, rash or itching, or other new complaints, except as mentioned above. Review of systems is otherwise negative. . - Constitutional Vitals: Temp Pulse Resp BP Pulse Ox 97.9 F 82 15 115/73 94 12/06/18 07:19 12/06/18 07:19 12/06/18 07:19 12/06/18 07:19 12/06/18 07:19 Exam: Examination: (Except as mentioned above): General: In no apparent distress. Alert and oriented 3. Nondiaphoretic. Head: Atraumatic and normocephalic. Respiratory: No use of accessory muscles. Lungs are clear throughout. Normal airflow. Cardiovascular: Regular rate and rhythm without murmur appreciated. Abdomen: Bowel sounds are normal. No hepatosplenomegaly mass or tenderness appreciated. Obese and therefore difficult to palpate deeply. Patient is examined upright in chair and this also limits exam. Extremities: No cyanosis clubbing or edema. Skin: Warm and non-diaphoretic with no new lesions noted. Neurologic: Persistent left facial droop and left hemiparesis, dense. Internal Medicine: Result - Labs CBC & Chem 7: 12/06/18 05:30 12/06/18 05:30 Labs: Short CBC 12/06/18 Range/Units 05:30 WBC 8.4 (4.3-11.1) K/mcL Hgb 11.2 L (11.5-15.4) g/dL Hct 35.1 L (35.3-44.9) % Plt Count 206 (140-400) K/mcL Neutrophils # 4.7 (1.6-8.9) K/mcL BMP 12/06/18 05:30 Sodium 139 Potassium 4.3 Chloride 108 H Carbon Dioxide 27 BUN 19 Creatinine 0.70 Glucose 107 H Calcium 8.9 - Stroke Is the patient on any antithrombotics?: Yes Are there any contradictions to antithrombotics?: No Contraindication Antithromb by Day Two: Drug Allergy to All Antithromobic Medications Consult Discharge Plan - Plan Referrals: Caesar Marquez MD [Primary Care Provider] -
[2018-12-06] MEDS: Nicotine 21 MG PATCH.TD24 TD SCH (10:37)
[2018-12-06] MEDS: Docusate Oral Soln 100 MG/10 ML UDC PO SCH ×2 (10:37→20:19)
[2018-12-06] MEDS: Potassium Chloride Elixir 20 MEQ/15 ML UDC PO SCH (10:37)
[2018-12-06] MEDS: Aspirin 81 MG TAB.CHEW PO SCH (10:38)
[2018-12-06] MEDS: tiZANidine 4 MG TABLET PO SCH ×4 (10:38→20:21)
[2018-12-06] MEDS: Sennosides 8.6 MG TABLET PO SCH (10:38)
[2018-12-06] MEDS: Melatonin 3 MG TABLET PO PRN (20:20)
[2018-12-07] MEDS: *HR* Enoxaparin 40 MG/0.4 ML SYRINGE SQ SCH (04:04)
[2018-12-07] MEDS: Aspirin 81 MG TAB.CHEW PO SCH (08:58)
[2018-12-07] MEDS: Docusate Oral Soln 100 MG/10 ML UDC PO SCH (08:58)
[2018-12-07] MEDS: Potassium Chloride Elixir 20 MEQ/15 ML UDC PO SCH (08:58)
[2018-12-07] MEDS: Sennosides 8.6 MG TABLET PO SCH (08:59)
[2018-12-07] MEDS: tiZANidine 4 MG TABLET PO SCH ×2 (08:59→13:23)
[2018-12-07] MEDS: Nicotine 21 MG PATCH.TD24 TD SCH (08:59)
[2018-12-07 09:16] VITALS: BP 141/71
--- NOTE | 2018-12-07 09:51 | Discharge Summary ---
Date of Encounter: 12/07/18 Time of Encounter: 09:48 - Discharge Diagnosis (1) CVA (cerebral vascular accident) Priority: Primary Status: Acute Comments: Patient experienced a right CVA resulting in left hemiplegia. Patient is recovery at [facility] hospital was uneventful and she was transferred to this facility for further rehabilitation due to generalized weakness and rehabilitation from her CVA. Patient has progressed well with physical therapy but continues with left hemiplegia. Left arm continues with slight contraction on flexion. Patient also continues with slight dysarthria and continues to follow with speech therapy. Patient is continue her physical therapy through home health services to include PT/OT and speech therapy. Patient is also to continue her follow-up with neurology and PCP after discharge for further management Qualifiers: CVA mechanism: embolism Precerebral and cerebral artery: middle cerebral artery Laterality of affected vessel: right Qualified Code(s): I63.411 - Cerebral infarction due to embolism of right middle cerebral artery (2) COPD (chronic obstructive pulmonary disease) Priority: Secondary Status: Chronic Comments: No acute issues during stay. Patient's lungs have remained fairly clear. Patient does continue to have some issues with tobacco abuse and smoking cessation education has been provided. Patient is continue on her current medications and bronchodilators after discharge and follow up with her PCP for further management Qualifiers: COPD type: COPD with acute lower respiratory infection Qualified Code(s): J44.0 - Chronic obstructive pulmonary disease with acute lower respiratory infection (3) Insomnia Priority: Secondary Status: Acute Comments: Patient has experienced some issues with difficulty sleeping at night. Patient was started on several medications which appear to have been effective. Patient is continue follow-up with PCP Qualifiers: Insomnia type: unspecified Qualified Code(s): G47.00 - Insomnia, unspecified Hospital course: Ms. Contreras is a 68 year old female , who experienced a right CVA resulting in left hemiplegia. Hospital recovery was uneventful and she was discharged to rehabilitation for further recovery. Patient continues with left hemiplegia and dysarthria. She has progressed well with physical therapy, which has improved her safety for transferring and ADLs.. Patient continues to follow with speech therapy. History of COPD with no acute issues during her stay at this facility. Vital signs are stable. Patient is continue her follow-up with PCP and neurology after discharge. Patient will continue her therapy through home health services for PT/OT and speech therapy. Discharge discussed with: patient Time spent discussing smoking cessation with patient: 3 to 10 minutes - Time Spent with Patient Total time spent providing and/or coordinating discharge services: Time spent: Less than 30 minutes - Discharge Medications Prescriptions: No Action Lisinopril [Zestril] 10 mg PO DAILY Docusate [Colace] 100 mg PO BID Atorvastatin [Lipitor] 80 mg PO HS Aspirin [Lo-Dose Aspirin EC] 81 mg PO DAILY Sennosides [Senokot] 8.6 mg PO DAILY Home Medications: Aspirin [Lo-Dose Aspirin EC] 81 mg PO DAILY 11/09/18 [History] Atorvastatin [Lipitor] 80 mg PO HS 11/09/18 [History] Docusate [Colace] 100 mg PO BID 11/09/18 [History] Lisinopril [Zestril] 10 mg PO DAILY 11/09/18 [History] Sennosides [Senokot] 8.6 mg PO DAILY 11/09/18 [History] Allergies/Adverse Reactions: Allergy/AdvReac Type Severity Reaction Status Date / Time No Known Allergies Allergy Verified 11/09/18 23:56 Date of admission: 11/09/18 19:45 Primary care physician: Caesar Marquez Consults: 11/09/18 21:49 Consult to Occupational Therapy [CONS] Routine Comment: Evaluate, develop and implement POC Reason for Consult: post stroke eval needed Does patient have active BEDREST order?: No Is patient medically & hemodynamically stable?: Yes Patient assessed for mobility or mobilized this visit?: No Consult to Physical Medicine/Rehab [CONS] Routine Reason for Consult: post stroke eval needed Time Notified: 21:55 Call Completed: Yes Consult to Physical Therapy [CONS] Routine Comment: Evaluate, develop and implement POC Reason for Consult: admitted for stroke eval needed Does patient have active BEDREST order?: No Is patient medically & hemodynamically stable?: Yes Patient assessed for mobility or mobilized this visit?: No Consult to Recreational Therapy [CONS] Routine Comment: Evaluate, develop and implement POC Consult to Marketing Operations Consultant [CONS] Routine Reason for SW Consult: post stroke eval needed Consult to Speech Therapy [CONS] Routine Comment: Evaluate, develop and implement POC Reason for Consult: speech impairment Call Completed: Yes 11/09/18 22:13 Consult to Nutrition [CONS] Routine Comment: Consulting Provider: NUTRITION Reason for Dietary Consult: PO Supplementation 11/12/18 18:54 Consult to Psychology [CONS] Routine Consulting Provider: Basilia Escobar Reason for Consult: Possible depression; adjustment disorder Call Completed: No Discharging clinician: Tonio Reddy - Constitutional Vitals: Temp Pulse Resp BP Pulse Ox 98.0 F 79 16 141/71 96 12/07/18 09:15 12/07/18 09:15 12/07/18 09:15 12/07/18 09:15 12/07/18 09:15 General appearance: Present: cooperative, A&O X 3, pleasant, no acute distress, answers questions appropriately - Head Head exam: Present: atraumatic, normocephalic - Eye Eye exam: Present: PERRL, conjuntiva pink, sclera anicteric Pupils: Present: PERRL - Neck Neck exam general surgery: Present: supple, trachea midline. Absent: lymphadenopathy - Respiratory Respiratory exam: Present: CTAB. Absent: accessory muscle use, rales, rhonchi, wheezes - Cardiovascular Cardiovascular exam: Present: RRR, +S1, +S2. Absent: diastolic murmur, gallop, rubs, systolic murmur - GI/Abdominal GI/Abdominal exam: Present: normal bowel sounds, soft, no peritoneal signs. Absent: distended, tenderness - Extremities Exam Extremities exam: Present: warm, radial pulses palpable and symmetrical. Absent: calf tenderness, cyanotic, pedal edema - Neurological Exam Neurological exam: Present: CN II-XII intact, oriented X3, facial droop, speech deficit. Absent: pronater drift Additional comments: Patient continues with slight right sided facial droop and dysarthria. Left hemiplegia. Left upper extremity remains slightly contracted. Right extremities at 5/5 muscle strength - Skin Skin exam: Present: dry, intact - Patient Status Disposition: Home Health Service Condition: Good Functional capacity at discharge: wheelchair bound Overall status at discharge: patient is progressing back to baseline - Discharge Instructions Follow Up With: Caesar Marquez MD [Primary Care Provider] - 12/09/18 8:00 am - Diet and Activity Activity: as per physical therapy, increase activity as tolerated Diet: low fat, low cholesterol, low salt diet - Stroke Is the patient on any antithrombotics?: Yes Are there any contradictions to antithrombotics?: No Contraindication Antithromb by Day Two: Drug Allergy to All Antithromobic Medications
--- NOTE | 2018-12-07 09:58 | Physician Discharge Referral ---
Home Health/Hosp Referral Info Transfer to: Home Health Provider in Charge Post Discharge: PCP - Diagnosis (1) CVA (cerebral vascular accident) Priority: Primary Status: Acute (2) COPD (chronic obstructive pulmonary disease) Priority: Secondary Status: Chronic (3) Insomnia Priority: Secondary Status: Acute - Respiratory Orders Smoking Cessation: Smoking cessation has been advised. For more information, call the [place] Tobacco Quit Line at 8-344-IHJL-NOW. - Diet/Nutrition Diet/Nutrition Orders: Mechanical Soft, Cardiac (per speech therapy) - Activity Activity Orders: Up ad rodríguez, Chair - Services Needed Following services are medically necessary services: Nursing, Home Health Aide, Physical Therapy, Occupational Therapy, Speech Therapy - Transfer Medications Home Medications: Aspirin [Lo-Dose Aspirin EC] 81 mg PO DAILY 11/09/18 [History] Atorvastatin [Lipitor] 80 mg PO HS 11/09/18 [History] Docusate [Colace] 100 mg PO BID 11/09/18 [History] Lisinopril [Zestril] 10 mg PO DAILY 11/09/18 [History] Sennosides [Senokot] 8.6 mg PO DAILY 11/09/18 [History] Allergies/Adverse Reactions: Allergy/AdvReac Type Severity Reaction Status Date / Time No Known Allergies Allergy Verified 11/09/18 23:56 Certification: Further, I certify that my clinical findings support that this patient is homebound (i.e. absences from home require considerable and taxing effort and are for medical reasons or orthodox services or infrequently or short duration when for other reasons) because: Homebound Reason: Leaving home requires considerable and taxing effort due to condition Attestation: My signature below is to certify that this patient is under my care and that I, or nurse practitioner, or a physician's social worker assistant working with me, has a [id number] encounter with this patient.
== END 2018-12-07 15:33 | disposition home health service (06) | DRG 57 ==
LOC: INPGRE 19:45